=== PATIENT | female | born 1985 | race Caucasian/White ===

== ENCOUNTER 2018-01-08 19:29 | Emergency (ER) | payer OTHER ==
[~2018-01-08] VITALS: Ht 152.4 cm; Wt 113.4 kg
[~2018-01-08 19:29] MED LIST: BREO; FLONASE; GABAPENTIN300 MG PO; TOPAMAX25 MG PO; WELLBUTRIN SR150 MG PO; Z.0.ADDERALL 20 MG20; Z.0.ARMOUR THYROID30; Z.0.ATIVAN1 MG
[2018-01-08] MEDS ORDERED: TETANUS/DIPHTHERIA TOX ADULT 0.5 ML SYR IM ONE (20:15)
[2018-01-08 20:34] VITALS: BP 129/86
== END 2018-01-08 20:38 | disposition home or self-care (01) ==
LOC: ER 19:29
DX: S01.112A Laceration without foreign body of left eyelid and periocular area, initial encounter (principal); W22.8XXA Striking against or struck by other objects, initial encounter
CPT/HCPCS: 90471; 90714; 99282

== ENCOUNTER 2018-08-25 11:53 | Emergency (ER) | payer BC, OTHER ==
[~2018-08-25] VITALS: Ht 157.5 cm; Wt 113.4 kg
[~2018-08-25 11:53] MED LIST changes: +MOTRIN200 MG PO
--- OUTSIDE RECORDS SUMMARY | 2018-08-25 11:55 | XMS REPORT | Clinical Summary ---
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 Last Filed Vital Signs Not on file Plan of Treatment Health Maintenance Due Date Last Done Comments CERVICAL CANCER SCREENING 2008 INFLUENZA VACCINE 02/11/2018 Results Not on fileafter 08/24/2017 Insurance Payer Benefit Subscriber ID Type Phone Address Plan / Group [employer] MED[employer]ID [employer] xxxxxxxxx [facility] Advance Directives Patient has advance care planning documents on file. For more information, izzy mitchell contact: Carlos Manuel Camacho [address] [place], [place] [address] [place] [address]
--- OUTSIDE RECORDS SUMMARY | 2018-08-25 11:56 | XMS REPORT ---
Author Author [facility] Address Unknown Phone Unavailable Care Team Providers Care Medical Clerical Assistant Name Role Phone Tiffany BARONE Unavailable Unavailable Payers Payer Name Policy Type Policy Number Effective Date Expiration Date Problems This patient has no known problems. Allergies, Adverse Reactions, Alerts Allergy Name Allergy Type Status Severity Reaction(s) Onset Date Inactive Date Treating Clinician Comments Sulfa (Sulfonamide Antibiotics) DA Active [place] 2018-06-25 00:00:00 adhesive tape DA Active MI 2018-06-25 00:00:00 tramadol DA Active U 2018-06-25 00:00:00 adhesive tape DA Active MI 2018-06-07 00:00:00 Sulfa (Sulfonamide Antibiotics) DA Active MN 2018-05-27 00:00:00 tramadol DA Active U 2018-05-27 00:00:00 Sulfa (Sulfonamide Antibiotics) DA Active MN 2017-12-08 00:00:00 tramadol DA Active U 2017-12-08 00:00:00 Medications This patient has no known medications. Results Test Description Test Time Test Comments Text Results Atomic Results Result Comments BASIC METABOLIC PANEL 2018-08-24 11:53:00 SODIUM (test code=NA) 136 mmol/L 136-145 POTASSIUM (test code=K) 4.8 mmol/L 3.5-5.1 CHLORIDE (test code=CL) 107.0 mmol/L 98-107 CARBON DIOXIDE (test code=CO2) 20.0 mmol/L 21-32 ANION GAP (test code=GAP) 13.8 10-20 GLUCOSE (test code=GLU) 87 mg/dL 74-106 BLOOD UREA NITROGEN (test code=BUN) 4 mg/dL 7-18 GLOMERULAR FILTRATION RATE (test code=GFR) > 60 mL/min >=60 Estimated GFR by using Modified MDRD formula.Chronic kidney disease is defined as either kidney damageor GFR <60 mL/min/1.73 m2 for >3 months. CREATININE (test code=CREAT) 0.80 mg/dL 0.55-1.02 Note change in reference range due to change in reagent. BUN/CREATININE RATIO (test code=BUN/CREA) 4.8 10-20 CALCIUM (test code=CA) 8.8 mg/dL 8.5-10.1 BASIC METABOLIC [id number] 11:48:00* Test Item Value Reference Range Comments SODIUM (test code=NA) 136 mmol/L 136-145 POTASSIUM (test code=K) 4.8 mmol/L 3.5-5.1 CHLORIDE (test code=CL) 107.0 mmol/L 98-107 CARBON DIOXIDE (test code=CO2) mmol/L 21-32 ANION GAP (test code=GAP) 10-20 GLUCOSE (test code=GLU) mg/dL 74-106 BLOOD UREA NITROGEN (test code=BUN) mg/dL 7-18 GLOMERULAR FILTRATION RATE (test code=GFR) mL/min >=60 CREATININE (test code=CREAT) mg/dL 0.55-1.02 BUN/CREATININE RATIO (test code=BUN/CREA) 10-20 CALCIUM (test code=CA) mg/dL 8.5-10.1 BASIC METABOLIC [id number] 14:03:00* Test Item Value Reference Range Comments SODIUM (test code=NA) 140 mmol/L 136-145 POTASSIUM (test code=K) 3.0 mmol/L 3.5-5.1 CHLORIDE (test code=CL) 105.0 mmol/L 98-107 CARBON DIOXIDE (test code=CO2) 26.0 mmol/L 21-32 ANION GAP (test code=GAP) 12.0 10-20 GLUCOSE (test code=GLU) 84 mg/dL 74-106 BLOOD UREA NITROGEN (test code=BUN) 3 mg/dL 7-18 GLOMERULAR FILTRATION RATE (test code=GFR) > 60 mL/min >=60 Estimated GFR by using Modified MDRD formula.Chronic kidney disease is defined as either kidney damageor GFR <60 mL/min/1.73 m2 for >3 months. CREATININE (test code=CREAT) 0.90 mg/dL 0.55-1.02 Note change in reference range due to change in reagent. BUN/CREATININE RATIO (test code=BUN/CREA) 3.4 10-20 CALCIUM (test code=CA) 7.8 mg/dL 8.5-10.1 RENAL FUNCTION [id number] 14:03:00* Test Item Value Reference Range Comments ALBUMIN (test code=ALB) 2.3 g/dL 3.4-5.0 PHOSPHORUS (test code=PHOS) 2.9 mg/dL 2.5-4.9 [id number] 14:03:00* Test Item Value Reference Range Comments MAGNESIUM (test code=MAG) 1.7 mg/dL 1.8-2.4 BASIC METABOLIC [id number] 13:56:00* Test Item Value Reference Range Comments SODIUM (test code=NA) 140 mmol/L 136-145 POTASSIUM (test code=K) 3.0 mmol/L 3.5-5.1 CHLORIDE (test code=CL) 105.0 mmol/L 98-107 CARBON DIOXIDE (test code=CO2) mmol/L 21-32 ANION GAP (test code=GAP) 10-20 GLUCOSE (test code=GLU) mg/dL 74-106 BLOOD UREA NITROGEN (test code=BUN) mg/dL 7-18 GLOMERULAR FILTRATION RATE (test code=GFR) mL/min >=60 CREATININE (test code=CREAT) mg/dL 0.55-1.02 BUN/CREATININE RATIO (test code=BUN/CREA) 10-20 CALCIUM (test code=CA) mg/dL 8.5-10.1 RENAL FUNCTION [id number] 13:56:00* Test Item Value Reference Range Comments ALBUMIN (test code=ALB) g/dL 3.4-5.0 PHOSPHORUS (test code=PHOS) mg/dL 2.5-4.9 [id number] 13:56:00* Test Item Value Reference Range Comments MAGNESIUM (test code=MAG) mg/dL 1.8-2.4 [id number] 12:39:00* Test Item Value Reference Range Comments PHOSPHORUS (test code=PHOS) 4.1 mg/dL 2.5-4.9 BASIC METABOLIC [id number] 08:01:00* Test Item Value Reference Range Comments SODIUM (test code=NA) 143 mmol/L 136-145 POTASSIUM (test code=K) 3.8 mmol/L 3.5-5.1 CHLORIDE (test code=CL) 108.0 mmol/L 98-107 CARBON DIOXIDE (test code=CO2) 25.0 mmol/L 21-32 ANION GAP (test code=GAP) 13.8 10-20 GLUCOSE (test code=GLU) 80 mg/dL 74-106 BLOOD UREA NITROGEN (test code=BUN) 3 mg/dL 7-18 GLOMERULAR FILTRATION RATE (test code=GFR) 52 mL/min >=60 Estimated GFR by using Modified MDRD formula.Chronic kidney disease is defined as either kidney damageor GFR <60 mL/min/1.73 m2 for >3 months. CREATININE (test code=CREAT) 1.20 mg/dL 0.55-1.02 Note change in reference range due to change in reagent. BUN/CREATININE RATIO (test code=BUN/CREA) 2.5 10-20 CALCIUM (test code=CA) 8.5 mg/dL 8.5-10.1 [id number] 08:01:00* Test Item Value Reference Range Comments MAGNESIUM (test code=MAG) 2.0 mg/dL 1.8-2.4 CALCIUM [id number] 08:01:00* Test Item Value Reference Range Comments CALCIUM IONIZED (test code=NATANAEL) 1.27 mmol/L 1.12-1.32 BASIC METABOLIC [id number] 07:54:00* Test Item Value Reference Range Comments SODIUM (test code=NA) 143 mmol/L 136-145 POTASSIUM (test code=K) 3.8 mmol/L 3.5-5.1 CHLORIDE (test code=CL) 108.0 mmol/L 98-107 CARBON DIOXIDE (test code=CO2) 25.0 mmol/L 21-32 ANION GAP (test code=GAP) 13.8 10-20 GLUCOSE (test code=GLU) 80 mg/dL 74-106 BLOOD UREA NITROGEN (test code=BUN) 3 mg/dL 7-18 GLOMERULAR FILTRATION RATE (test code=GFR) 52 mL/min >=60 Estimated GFR by using Modified MDRD formula.Chronic kidney disease is defined as either kidney damageor GFR <60 mL/min/1.73 m2 for >3 months. CREATININE (test code=CREAT) 1.20 mg/dL 0.55-1.02 Note change in reference range due to change in reagent. BUN/CREATININE RATIO (test code=BUN/CREA) 2.5 10-20 CALCIUM (test code=CA) 8.5 mg/dL 8.5-10.1 [id number] 07:54:00* Test Item Value Reference Range Comments MAGNESIUM (test code=MAG) 2.0 mg/dL 1.8-2.4 CALCIUM [id number] 07:54:00* Test Item Value Reference Range Comments CALCIUM IONIZED (test code=NATANAEL) mmol/L 1.12-1.32 BASIC METABOLIC [id number] 07:41:00* Test Item Value Reference Range Comments SODIUM (test code=NA) 143 mmol/L 136-145 POTASSIUM (test code=K) 3.8 mmol/L 3.5-5.1 CHLORIDE (test code=CL) 108.0 mmol/L 98-107 CARBON DIOXIDE (test code=CO2) mmol/L 21-32 ANION GAP (test code=GAP) 10-20 GLUCOSE (test code=GLU) mg/dL 74-106 BLOOD UREA NITROGEN (test code=BUN) mg/dL 7-18 GLOMERULAR FILTRATION RATE (test code=GFR) mL/min >=60 CREATININE (test code=CREAT) mg/dL 0.55-1.02 BUN/CREATININE RATIO (test code=BUN/CREA) 10-20 CALCIUM (test code=CA) mg/dL 8.5-10.1 [id number] 07:41:00* Test Item Value Reference Range Comments MAGNESIUM (test code=MAG) mg/dL 1.8-2.4 CALCIUM [id number] 07:41:00* Test Item Value Reference Range Comments CALCIUM IONIZED (test code=NATANAEL) mmol/L 1.12-1.32 UR POTASSIUM [id number] 14:19:00* Test Item Value Reference Range Comments URINE K, RANDOM (test code=KU) 40.0 mmol/L 12-75 UR POTASSIUM 24HR (test code=K24T) 6.0 mmol/24H 25-125 UR VOLUME 24HR (test code=VOL) 150 mL/24hrs 2905-2314 UR CALCIUM [id number] 14:19:00* Test Item Value Reference Range Comments UR CALCIUM (test code=CAU) 15.0 mg/dL 2-17.5 UR CALCIUM 24HR (test code=CA24T) 22.5 mg/24hr 42-353 UR MAGNESIUM [id number] 14:19:00* Test Item Value Reference Range Comments UR MAGNESIUM (test code=MAGU) 20.7 mg/dL 1-13 UR MAGNESIUM 24HR (test code=MAG24T) 31.1 mg/24hr 24-255 UR POTASSIUM [id number] 14:07:00* Test Item Value Reference Range Comments URINE K, RANDOM (test code=KU) mmol/L 12-75 UR POTASSIUM 24HR (test code=K24T) mmol/24H 25-125 UR VOLUME 24HR (test code=VOL) 150 mL/24hrs 7250-5984 UR CALCIUM [id number] 14:07:00* Test Item Value Reference Range Comments UR CALCIUM (test code=CAU) mg/dL 2-17.5 UR CALCIUM 24HR (test code=CA24T) mg/24hr 42-353 UR MAGNESIUM [id number] 14:07:00* Test Item Value Reference Range Comments UR MAGNESIUM (test code=MAGU) mg/dL 1-13 UR MAGNESIUM 24HR (test code=MAG24T) mg/24hr 24-255 BASIC METABOLIC [id number] 06:07:00* Test Item Value Reference Range Comments SODIUM (test code=NA) 138 mmol/L 136-145 POTASSIUM (test code=K) 4.0 mmol/L 3.5-5.1 CHLORIDE (test code=CL) 107.0 mmol/L 98-107 CARBON DIOXIDE (test code=CO2) 23.0 mmol/L 21-32 ANION GAP (test code=GAP) 12.0 10-20 GLUCOSE (test code=GLU) 80 mg/dL 74-106 BLOOD UREA NITROGEN (test code=BUN) 3 mg/dL 7-18 GLOMERULAR FILTRATION RATE (test code=GFR) > 60 mL/min >=60 Estimated GFR by using Modified MDRD formula.Chronic kidney disease is defined as either kidney damageor GFR <60 mL/min/1.73 m2 for >3 months. CREATININE (test code=CREAT) 1.00 mg/dL 0.55-1.02 Note change in reference range due to change in reagent. BUN/CREATININE RATIO (test code=BUN/CREA) 3.0 10-20 CALCIUM (test code=CA) 7.9 mg/dL 8.5-10.1 [id number] 06:07:00* Test Item Value Reference Range Comments PHOSPHORUS (test code=PHOS) 1.7 mg/dL 2.5-4.9 [id number] 06:07:00* Test Item Value Reference Range Comments MAGNESIUM (test code=MAG) 2.1 mg/dL 1.8-2.4 BASIC METABOLIC [id number] 06:06:00* Test Item Value Reference Range Comments SODIUM (test code=NA) 138 mmol/L 136-145 POTASSIUM (test code=K) 4.0 mmol/L 3.5-5.1 CHLORIDE (test code=CL) 107.0 mmol/L 98-107 CARBON DIOXIDE (test code=CO2) mmol/L 21-32 ANION GAP (test code=GAP) 10-20 GLUCOSE (test code=GLU) mg/dL 74-106 BLOOD UREA NITROGEN (test code=BUN) mg/dL 7-18 GLOMERULAR FILTRATION RATE (test code=GFR) mL/min >=60 CREATININE (test code=CREAT) mg/dL 0.55-1.02 BUN/CREATININE RATIO (test code=BUN/CREA) 10-20 CALCIUM (test code=CA) 7.9 mg/dL 8.5-10.1 [id number] 06:06:00* Test Item Value Reference Range Comments PHOSPHORUS (test code=PHOS) mg/dL 2.5-4.9 [id number] 06:06:00* Test Item Value Reference Range Comments MAGNESIUM (test code=MAG) mg/dL 1.8-2.4 URINE K, [id number] 10:34:00* Test Item Value Reference Range Comments URINE K, RANDOM (test code=KU) 35.0 mmol/L 12-75 UR [id number] 10:34:00* Test Item Value Reference Range Comments UR MAGNESIUM (test code=MAGU) 31.2 mg/dL 1-13 UR OSMOLALITY [id number] 10:34:00* Test Item Value Reference Range Comments UR OSMOLALITY RANDOM (test code=OSMOU) 504 mOsm/kg 48-962 URINE K, [id number] 10:31:00* Test Item Value Reference Range Comments URINE K, RANDOM (test code=KU) 35.0 mmol/L 12-75 UR [id number] 10:31:00* Test Item Value Reference Range Comments UR MAGNESIUM (test code=MAGU) mg/dL 1-13 UR OSMOLALITY [id number] 10:31:00* Test Item Value Reference Range Comments UR OSMOLALITY RANDOM (test code=OSMOU) 504 mOsm/kg 48-962 OSMOLALITY [id number] 10:28:00* Test Item Value Reference Range Comments OSMOLALITY SERUM (test code=OSMO) 283 mOsm/kg 275-295 UR OSMOLALITY [id number] 09:51:00* Test Item Value Reference Range Comments UR OSMOLALITY RANDOM (test code=OSMOU) 504 mOsm/kg 48-962 BASIC METABOLIC [id number] 05:04:00* Test Item Value Reference Range Comments SODIUM (test code=NA) 140 mmol/L 136-145 POTASSIUM (test code=K) 3.0 mmol/L 3.5-5.1 CHLORIDE (test code=CL) 103.0 mmol/L 98-107 CARBON DIOXIDE (test code=CO2) 29.0 mmol/L 21-32 ANION GAP (test code=GAP) 11.0 10-20 GLUCOSE (test code=GLU) 73 mg/dL 74-106 BLOOD UREA NITROGEN (test code=BUN) 3 mg/dL 7-18 GLOMERULAR FILTRATION RATE (test code=GFR) > 60 mL/min >=60 Estimated GFR by using Modified MDRD formula.Chronic kidney disease is defined as either kidney damageor GFR <60 mL/min/1.73 m2 for >3 months. CREATININE (test code=CREAT) 0.80 mg/dL 0.55-1.02 Note change in reference range due to change in reagent. BUN/CREATININE RATIO (test code=BUN/CREA) 3.7 10-20 CALCIUM (test code=CA) 7.9 mg/dL 8.5-10.1 [id number] 05:04:00* Test Item Value Reference Range Comments MAGNESIUM (test code=MAG) 2.6 mg/dL 1.8-2.4 BASIC METABOLIC [id number] 04:54:00* Test Item Value Reference Range Comments SODIUM (test code=NA) 140 mmol/L 136-145 POTASSIUM (test code=K) 3.0 mmol/L 3.5-5.1 CHLORIDE (test code=CL) 103.0 mmol/L 98-107 CARBON DIOXIDE (test code=CO2) mmol/L 21-32 ANION GAP (test code=GAP) 10-20 GLUCOSE (test code=GLU) mg/dL 74-106 BLOOD UREA NITROGEN (test code=BUN) mg/dL 7-18 GLOMERULAR FILTRATION RATE (test code=GFR) mL/min >=60 CREATININE (test code=CREAT) mg/dL 0.55-1.02 BUN/CREATININE RATIO (test code=BUN/CREA) 10-20 CALCIUM (test code=CA) mg/dL 8.5-10.1 [id number] 04:54:00* Test Item Value Reference Range Comments MAGNESIUM (test code=MAG) mg/dL 1.8-2.4 [id number] 11:36:00* Test Item Value Reference Range Comments POTASSIUM (test code=K) 3.1 mmol/L 3.5-5.1 [id number] 11:36:00* Test Item Value Reference Range Comments MAGNESIUM (test code=MAG) 1.7 mg/dL 1.8-2.4 - NM GASTRIC [id number] 09:39:00 FAX: Lamin Min MD [place]: [address]: [facility] FAX: Daniel Swartz [phone] FAX: Anabell Brumfield [phone] Name: IVANNA WHITE [facility] : 1985 Age/S: 33/F [address] Unit #: [id number] Loc: V.3074 [place], [place] [address] Phys: Anabell Brumfield Acct: [id number] Dis Date: Status: ADM IN ONE #: [phone] Exam Date: 08/03/2018914 FAX #: [phone] Reason: abd pain, gastric stenosis EXAMS: CPT CODE: [id number] NM GASTRIC EMPTYING 19964 HISTORY: Abdom inal pain and gastric stenosis. COMPARISON: Upper GI series from J anuary 2018. Gastric emptying study: 1 mCi of technetium 99m u ltrafiltered sulfur colloid in oatmeal. T1 /2 calculated at 30 minutes which is well within the normal range of less than 90 minutes. IMPRESSION: T1 /2 of 30 minutes is normal and these findings would not suggest gastric outlet obstruction or stenosis. at 0939 Reported and signed by: Caleb Mcneal M.D. CC: Lamin Bobby MD; Daniel Holliday; Anabell Brumfield Technologist: KARLEE GUTIERREZ Trnscrd Date/Time/By: 0 08/03/2018 (0939) : By: [email or web address] Orig Print D/T: S: 08/03/2018 (0980) PAGE 1 Signed Report [id number] 14:39:00* Test Item Value Reference Range Comments POTASSIUM (test code=K) 3.3 mmol/L 3.5-5.1 [id number] 14:39:00* Test Item Value Reference Range Comments MAGNESIUM (test code=MAG) 1.9 mg/dL 1.8-2.4 BASIC METABOLIC [id number] 05:44:00* Test Item Value Reference Range Comments SODIUM (test code=NA) 138 mmol/L 136-145 POTASSIUM (test code=K) 2.7 mmol/L 3.5-5.1 Results called to [id number] by V.[email or web address] 08/02/18 0543Critical results verified and read back by Nurse? Y CHLORIDE (test code=CL) 95.0 mmol/L 98-107 CARBON DIOXIDE (test code=CO2) 33.0 mmol/L 21-32 ANION GAP (test code=GAP) 12.7 10-20 GLUCOSE (test code=GLU) 81 mg/dL 74-106 BLOOD UREA NITROGEN (test code=BUN) 4 mg/dL 7-18 GLOMERULAR FILTRATION RATE (test code=GFR) > 60 mL/min >=60 Estimated GFR by using Modified MDRD formula.Chronic kidney disease is defined as either kidney damageor GFR <60 mL/min/1.73 m2 for >3 months. CREATININE (test code=CREAT) 0.90 mg/dL 0.55-1.02 Note change in reference range due to change in reagent. BUN/CREATININE RATIO (test code=BUN/CREA) 4.3 10-20 CALCIUM (test code=CA) 7.7 mg/dL 8.5-10.1 [id number] 16:32:00* Test Item Value Reference Range Comments POTASSIUM (test code=K) 3.2 mmol/L 3.5-5.1 - XR UGI W/AIR W/O [id number] 14:56:00 FAX: Lamin Min MD [place]: [address] St: ADM FAX: Daniel Swartz [phone] FAX: Anabell Brumfield [phone] Name: CHRISTOPHERIVANNAJUDY CONN [facility] : 1985 Age/S: 33/F [address] [facility] Unit #: [id number] Loc: V.3074 [place] [address] Phys: Anabell Brumfield Acct: [id number] Dis Date: Status: ADM IN ONE #: [phone] Exam Date: 08/01/2018 1435 FAX #: [phone] Reason: abd pain, gastric stenosis EXAMS: CPT CODE: [id number] XR UGI W/AIR W/O KUB [id number] EXAM: Upper GI double contrast barium study; INFORMATION: Nausea and vomiting; p atient is status post pyloric dilatation several months ago; FINDINGS: Unimpaired passage of contrast material through the esophagus, the stomach and duodenum and the proximal jejunum. These organs shows smooth contours and normal mucosal pattern. IMPRESSION: Unremarkable barium study of the upper GI tract; no morphological or functional abnormalities. Fluoroscopy Time: 60 sec CAK : 34.167 mGy at 1456 Reported and signed by: Dawood Rivera M.D. CC: Lamin Bobby MD; Daniel Holliday; Anabell Brumfield Technologist: Piter BILL(R) Trnscrd Date/Time/By: 08/01/2018 (2269) : By: ChitoGRW Orig Print D/T: S: 08/01/2018 (2245) PAGE 1 Signed Report COMPREHENSIVE METABOLIC [id number] 07:22:00* Test Item Value Reference Range Comments SODIUM (test code=NA) 135 mmol/L 136-145 POTASSIUM (test code=K) 2.5 mmol/L 3.5-5.1 Results called to [id number] by IVETT 08/01/18 0722Critical results verified and read back by Nurse? Y CHLORIDE (test code=CL) 93.0 mmol/L 98-107 CARBON DIOXIDE (test code=CO2) 31.0 mmol/L 21-32 ANION GAP (test code=GAP) 13.5 10-20 GLUCOSE (test code=GLU) 89 mg/dL 74-106 BLOOD UREA NITROGEN (test code=BUN) 4 mg/dL 7-18 GLOMERULAR FILTRATION RATE (test code=GFR) > 60 mL/min >=60 Estimated GFR by using Modified MDRD formula.Chronic kidney disease is defined as either kidney damageor GFR <60 mL/min/1.73 m2 for >3 months. CREATININE (test code=CREAT) 1.00 mg/dL 0.55-1.02 Note change in reference range due to change in reagent. BUN/CREATININE RATIO (test code=BUN/CREA) 4.0 10-20 TOTAL PROTEIN (test code=PROT) 5.6 gram/dL 6.4-8.2 ALBUMIN (test code=ALB) 2.1 g/dL 3.4-5.0 GLOBULIN (test code=GLOB) 3.5 gram/dL 2.7-4.2 ALBUMIN/GLOBULIN RATIO (test code=A/G) 0.6 0.75-1.50 CALCIUM (test code=CA) 7.6 mg/dL 8.5-10.1 BILIRUBIN TOTAL (test code=BILT) 0.50 mg/dL 0.0-1.0 SGOT/AST (test code=AST) 21 IUnit/L 15-37 SGPT/ALT (test code=ALT) 13 IUnit/L 12-78 ALKALINE PHOSPHATASE TOTAL (test code=ALKP) 83 IUnit/L 45-117 Note change in reference range due to change in reagent. CBC W/AUTO [id number] 06:42:00* Test Item Value Reference Range Comments WHITE BLOOD CELL (test code=WBC) 6.6 K/mm3 4.5-12.5 RED BLOOD CELL (test code=RBC) 3.65 mill/mm3 3.7-5.2 HEMOGLOBIN (test code=HGB) 10.5 gram/dL 11.5-15.5 RESULT VERIFIED BY REPEAT ANALYSIS HEMATOCRIT (test code=HCT) 31.8 % 36.0-46.0 MEAN CELL VOLUME (test code=MCV) 87.1 fL 80-98 MEAN CELL HGB (test code=MCH) 28.8 picogram 27.0-33.0 MEAN CELL HGB CONCETRATION (test code=MCHC) 33.0 gram/dL 33.0-36.0 RED CELL DISTRIBUTION WIDTH (test code=RDW) 13.7 % 11.6-16.2 RED CELL DISTRIBUTION WIDTH SD (test code=RDW-SD) 43.9 fL 37.0-51.0 PLATELET COUNT (test code=PLT) 339 K/mm3 150-450 RESULT VERIFIED BY REPEAT ANALYSIS MEAN PLATELET VOLUME (test code=MPV) 9.9 fL 6.7-11.0 NEUTROPHIL % (test code=NT%) 41.0 % 39.0-69.0 IMMATURE GRANULOCYTE % (test code=IG%) 0.3 % 0.0-5.0 LYMPHOCYTE % (test code=LY%) 49.8 % 25.0-55.0 MONOCYTE % (test code=MO%) 8.1 % 0.0-10.0 EOSINOPHIL % (test code=EO%) 0.3 % 0.0-5.0 BASOPHIL % (test code=BA%) 0.5 % 0.0-1.0 NUCLEATED RBC % (test code=NRBC%) 0.0 % 0-0 NEUTROPHIL # (test code=NT#) 2.70 K/mm3 1.8-7.7 IMMATURE GRANULOCYTE # (test code=IG#) 0.02 x10 3/uL 0-0.03 LYMPHOCYTE # (test code=LY#) 3.28 K/mm3 1.0-5.0 MONOCYTE # (test code=MO#) 0.53 K/mm3 0-0.8 EOSINOPHIL # (test code=EO#) 0.02 K/mm3 0.0-0.5 BASOPHIL # (test code=BA#) 0.03 K/mm3 0.0-0.2 NUCLEATED RBC # (test code=NRBC#) 0.00 K/mm3 0.0-0.1 [id number] 20:36:00* Test Item Value Reference Range Comments MAGNESIUM (test code=MAG) 2.0 mg/dL 1.8-2.4 BASIC METABOLIC [id number] 20:34:00* Test Item Value Reference Range Comments SODIUM (test code=NA) 133 mmol/L 136-145 POTASSIUM (test code=K) 2.3 mmol/L 3.5-5.1 Results called to STAR/PBW1437 by [email or web address] 07/31/184Critical results verified and read back by Nurse? Y CHLORIDE (test code=CL) 88.0 mmol/L 98-107 CARBON DIOXIDE (test code=CO2) 32.0 mmol/L 21-32 ANION GAP (test code=GAP) 15.3 10-20 GLUCOSE (test code=GLU) 99 mg/dL 74-106 BLOOD UREA NITROGEN (test code=BUN) 3 mg/dL 7-18 GLOMERULAR FILTRATION RATE (test code=GFR) 58 mL/min >=60 Estimated GFR by using Modified MDRD formula.Chronic kidney disease is defined as either kidney damageor GFR <60 mL/min/1.73 m2 for >3 months. CREATININE (test code=CREAT) 1.10 mg/dL 0.55-1.02 Note change in reference range due to change in reagent. BUN/CREATININE RATIO (test code=BUN/CREA) 2.7 10-20 CALCIUM (test code=CA) 8.6 mg/dL 8.5-10.1 HEPATIC FUNCTION [id number] 20:34:00* Test Item Value Reference Range Comments TOTAL PROTEIN (test code=PROT) 6.8 gram/dL 6.4-8.2 ALBUMIN (test code=ALB) 2.6 g/dL 3.4-5.0 GLOBULIN (test code=GLOB) 4.2 gram/dL 2.7-4.2 ALBUMIN/GLOBULIN RATIO (test code=A/G) 0.6 0.75-1.50 BILIRUBIN TOTAL (test code=BILT) 0.60 mg/dL 0.0-1.0 BILIRUBIN DIRECT (test code=BILD) 0.22 mg/dL 0.0-0.20 SGOT/AST (test code=AST) 28 IUnit/L 15-37 SGPT/ALT (test code=ALT) 16 IUnit/L 12-78 ALKALINE PHOSPHATASE TOTAL (test code=ALKP) 105 IUnit/L 45-117 Note change in reference range due to change in reagent. [id number] 20:34:00* Test Item Value Reference Range Comments LIPASE (test code=LIP) 136 U/L 73.0-393.0 HCG SERUM [id number] 20:34:00* Test Item Value Reference Range Comments HCG SERUM QUAL (test code=HCGQL) NEGATIVE NEGATIVE This HCGQL test is NOT applicable for MALE patients.Check with nurse about probable order error.If Tumor Marker Test needed, nurse should order test "HCGTU"(Test #550.58366) BASIC METABOLIC [id number] 20:26:00* Test Item Value Reference Range Comments SODIUM (test code=NA) mmol/L 136-145 POTASSIUM (test code=K) mmol/L 3.5-5.1 CHLORIDE (test code=CL) mmol/L 98-107 CARBON DIOXIDE (test code=CO2) mmol/L 21-32 ANION GAP (test code=GAP) 10-20 GLUCOSE (test code=GLU) mg/dL 74-106 BLOOD UREA NITROGEN (test code=BUN) mg/dL 7-18 GLOMERULAR FILTRATION RATE (test code=GFR) mL/min >=60 CREATININE (test code=CREAT) mg/dL 0.55-1.02 BUN/CREATININE RATIO (test code=BUN/CREA) 10-20 CALCIUM (test code=CA) mg/dL 8.5-10.1 HEPATIC FUNCTION [id number] 20:26:00* Test Item Value Reference Range Comments TOTAL PROTEIN (test code=PROT) gram/dL 6.4-8.2 ALBUMIN (test code=ALB) g/dL 3.4-5.0 GLOBULIN (test code=GLOB) gram/dL 2.7-4.2 ALBUMIN/GLOBULIN RATIO (test code=A/G) 0.75-1.50 BILIRUBIN TOTAL (test code=BILT) mg/dL 0.0-1.0 BILIRUBIN DIRECT (test code=BILD) mg/dL 0.0-0.20 SGOT/AST (test code=AST) IUnit/L 15-37 SGPT/ALT (test code=ALT) IUnit/L 12-78 ALKALINE PHOSPHATASE TOTAL (test code=ALKP) IUnit/L 45-117 [id number] 20:26:00* Test Item Value Reference Range Comments LIPASE (test code=LIP) U/L 73.0-393.0 HCG SERUM [id number] 20:26:00* Test Item Value Reference Range Comments HCG SERUM QUAL (test code=HCGQL) NEGATIVE NEGATIVE This HCGQL test is NOT applicable for MALE patients.Check with nurse about probable order error.If Tumor Marker Test needed, nurse should order test "HCGTU"(Test #550.06711) CBC W/O [id number] 20:12:00* Test Item Value Reference Range Comments WHITE BLOOD CELL (test code=WBC) 9.9 K/mm3 4.5-12.5 RED BLOOD CELL (test code=RBC) 4.31 mill/mm3 3.7-5.2 HEMOGLOBIN (test code=HGB) 12.6 gram/dL 11.5-15.5 HEMATOCRIT (test code=HCT) 37.0 % 36.0-46.0 MEAN CELL VOLUME (test code=MCV) 85.8 fL 80-98 MEAN CELL HGB (test code=MCH) 29.2 picogram 27.0-33.0 MEAN CELL HGB CONCETRATION (test code=MCHC) 34.1 gram/dL 33.0-36.0 RED CELL DISTRIBUTION WIDTH (test code=RDW) 13.5 % 11.6-16.2 PLATELET COUNT (test code=PLT) 442 K/mm3 150-450 MEAN PLATELET VOLUME (test code=MPV) 9.5 fL 6.7-11.0 URINALYSIS [id number] 20:12:00* Test Item Value Reference Range Comments UA COLOR (test code=COLU) DARK YELLOW YELLOW UA APPEARANCE (test code=APPU) SLIGHT CLOUDY CLEAR UA GLUCOSE DIPSTICK (test code=DGLUU) NEGATIVE mg/dL NEGATIVE UA BILIRUBIN DIPSTICK (test code=BILU) 2+ (MOD) NEGATIVE UA KETONE DIPSTICK (test code=KETU) TRACE mg/dL NEGATIVE UA SPECIFIC GRAVITY (test code=SGU) 1.025 1.001-1.035 UA BLOOD DIPSTICK (test code=NOLAN) 3+ (Large) NEGATIVE UA PH DIPSTICK (test code=BUSHRA) 5.5 5.0-8.0 UA PROTEIN DIPSTICK (test code=PROU) NEGATIVE mg/dL Neg-15 UA UROBILINIOGEN DIPSTICK (test code=URO) 0.2 mg/dL 0.0-0.2 UA NITRITE DIPSTICK (test code=MAURISIO) NEGATIVE NEGATIVE UA LEUKOCYTE ESTERASE W REFLEX (test code=LEUUR) 1+ NEGATIVE UA WBC (test code=WBCU) 6-10 per HPF 0-5 IN SOME URINARY TRACT INFECTIONS THERE MAY NOT BE ENOUGHWBCs IN THE URINE TO TRIGGER AN AUTOMATIC (REFLEX) URINECULTURE. A SEPERATE ORDER FOR URINE CULTURE IS RECOMMENDEDIF THERE IS STRONG SUPPORT FOR A URINARY TRACT INFECTIONCLINICALLY. UA RBC (test code=RBCU) 0-3 per HPF 0-5 UA EPITHELIAL CELLS (test code=EPIU) Moderate (5-10/hpf) per HPF Few UA BACTERIA (test code=BACU) MODERATE per HPF NONE Urine Source? Clean CatchURINALYSIS [id number] 20:10:00* Test Item Value Reference Range Comments UA COLOR (test code=COLU) DARK YELLOW YELLOW UA APPEARANCE (test code=APPU) SLIGHT CLOUDY CLEAR UA GLUCOSE DIPSTICK (test code=DGLUU) NEGATIVE mg/dL NEGATIVE UA BILIRUBIN DIPSTICK (test code=BILU) 2+ (MOD) NEGATIVE UA KETONE DIPSTICK (test code=KETU) TRACE mg/dL NEGATIVE UA SPECIFIC GRAVITY (test code=SGU) 1.025 1.001-1.035 UA BLOOD DIPSTICK (test code=NOLAN) 3+ (Large) NEGATIVE UA PH DIPSTICK (test code=BUSHRA) 5.5 5.0-8.0 UA PROTEIN DIPSTICK (test code=PROU) NEGATIVE mg/dL Neg-15 UA UROBILINIOGEN DIPSTICK (test code=URO) 0.2 mg/dL 0.0-0.2 UA NITRITE DIPSTICK (test code=MAURISIO) NEGATIVE NEGATIVE UA LEUKOCYTE ESTERASE W REFLEX (test code=LEUUR) 1+ NEGATIVE UA WBC (test code=WBCU) per HPF 0-5 Urine Source? Clean CatchFOOT RIGHT [id number] 13:22:00 [place] [address] Patient Name: IVANNA WHITE MR #: [id number] : 1985 Age/Sex: 32/F Req #: [id number] Adm Physician: Ordered by: JAM SANDOVAL SCREENING UNIT REGISTERED NURSE Report #: [id number] Location: ER Room/Bed: Procedure: [id number] DX/FOOT RIGHT COMPLETE Exam D ate: Exam Time: REPORT STATUS: Signed FOOT RIGHT COMPLETE - 3 views HISTORY: Pain. Excruciating pain. Point of tende rness at the calcaneus. COMPARISON: None available. FINDINGS: Bone s: No acute displaced fracture. Osseous alignment is within normal limits. Mild plantar calcaneal enthesophyte. Joints: The joint spaces are well- maintained. Soft tissues: The soft tissues appear unremarkable. IMPRESSION: 1. Mild plantar calcaneal enthesophyte. 2. No fractures. Signed by: Dr. Matt Ramos M.D. on 03/17/2018 1:23 PM Dictated By: MATT RAMOS MD [id number] Transcribed By: LARA on 03/17/18 1323 COPY TO: JAM SANDOVAL NP
--- NOTE | 2018-08-25 12:57 | Diagnostic Imaging Report ---
Exam: Left ankle 3 views History: Pain x4 days Comparison: None. Findings: No acute, displaced fracture or dislocation. The tibial plafond and talar dome are intact. The ankle mortise is maintained. Soft tissues are unremarkable. Impression: No acute osseous abnormality. Signed by: Dr. Tod Montenegro M.D. on 08/25/2018 12:54 PM
--- NOTE | 2018-08-25 12:58 | Diagnostic Imaging Report ---
EXAMINATION: CHEST SINGLE (PORTABLE) INDICATION: Chest pain. COMPARISON: None FINDINGS: TUBES and LINES: None. LUNGS: Lungs are well inflated. Lungs are clear. There is no evidence of pneumonia or pulmonary edema. PLEURA: No pleural effusion or pneumothorax. HEART AND MEDIASTINUM: The cardiomediastinal silhouette is unremarkable. BONES AND SOFT TISSUES: No acute osseous lesion. Soft tissues are unremarkable. UPPER ABDOMEN: No free air under the diaphragm. IMPRESSION: No acute thoracic abnormality. Signed by: Dr. Stephanie Green M.D. on 08/25/2018 12:55 PM
== END 2018-08-25 13:57 | disposition home or self-care (01) ==
LOC: FSED 11:53
DX: R06.00 Dyspnea, unspecified (principal); R05 Cough; M94.0 Chondrocostal junction syndrome [Tietze]; M25.572 Pain in left ankle and joints of left foot; S93.492A Sprain of other ligament of left ankle, initial encounter; F17.210 Nicotine dependence, cigarettes, uncomplicated
CPT/HCPCS: 71045; 93005; 99284

== ENCOUNTER 2018-09-20 20:29 | Emergency (ER) | payer SELFPAY ==
[~2018-09-20] VITALS: Ht 157.5 cm; Wt 113.4 kg
--- OUTSIDE RECORDS SUMMARY | 2018-09-20 20:31 | XMS REPORT | Clinical Summary ---
Author Author Carlos Manuel [facility] Organization [facility] Address Unknown Phone Unavailable Care Team Providers Care Hadoop Java Developer Name Role Phone Daniel Holliday DO PCP [...] INFLUENZA VACCINE 02/11/2018 Results Not on fileafter 09/19/2017 Insurance Payer Benefit Subscriber ID Type Phone Address Plan / Group UHC MEDICAID [employer] xxxxxxxxx [facility] Advance Directives Patient has advance care planning documents on file. For more information, izzy mitchell contact: Carlos Manuel Camacho [address] [place], [place] [address] [place] [address]
[2018-09-20] MEDS ORDERED: SODIUM CHLORIDE 0.9% 1000ML 1,000 ML IV ONE (20:45)
--- NOTE | 2018-09-20 21:47 | Diagnostic Imaging Report ---
EXAMINATION: CHEST 2 VIEWS INDICATION: Cough COMPARISON: Chest x-ray 08/25/2018 FINDINGS: PA and lateral views TUBES and LINES: Left chest wall port catheter tip overlies the upper SVC LUNGS: Lungs are well inflated. Lungs are clear. There is no evidence of pneumonia or pulmonary edema. PLEURA: No pleural effusion or pneumothorax. HEART AND MEDIASTINUM: The cardiomediastinal silhouette is unremarkable. BONES AND SOFT TISSUES: No acute osseous lesion. Soft tissues are unremarkable. UPPER ABDOMEN: No free air under the diaphragm. IMPRESSION: No acute thoracic abnormality. Signed by: DR. David Balderrama MD on 09/20/2018 9:44 PM
[2018-09-20 22:09] LABS: BASOPHILS % 0.5 % (0.0-1.0); EOSINOPHILS % 0.5 % (0.0-6.0); HEMATOCRIT 43.1 % (34.2-44.1); HEMOGLOBIN 14.3 g/dL (12.0-16.0); LYMPHOCYTES # (AUTO) 1.8 (1.0-3.2); LYMPHOCYTES % 42.6 % (18.0-39.1); MEAN CORPUSCULAR HEMOGLOBIN 29.5 pg (28-32); MEAN CORPUSCULAR HGB CONC 33.2 g/dL (31-35); MEAN CORPUSCULAR VOLUME 88.9 fL (81-99); MONOCYTES # (AUTO) 0.4 (0.2-0.8); NEUTROPHILS # (AUTO) 1.9 (2.1-6.9); NEUTROPHILS % 45.9 % (38.7-80.0); PLATELET COUNT 232 x10e3/uL (140-360); RED BLOOD COUNT 4.85 x10e6/uL (3.6-5.1); RED CELL DISTRIBUTION WIDTH 14.1 % (11.7-14.4)
[2018-09-20 22:24] LABS: ALANINE AMINOTRANSFERASE 60 IU/L (0-55); ALBUMIN 2.3 g/dL (3.5-5.0); ALBUMIN/GLOBULIN RATIO 0.6 (0.8-2.0); ALKALINE PHOSPHATASE 171 IU/L (40-150); AMYLASE 94 U/L (25-125); ANION GAP 14.2 mmol/L (8-16); BLOOD UREA NITROGEN 8 mg/dL (7-26); BUN/CREATININE RATIO 10 (6-25); CALCIUM 8.9 mg/dL (8.4-10.2); CARBON DIOXIDE 28 mmol/L (22-29); CHLORIDE 97 mmol/L (98-107); CREATININE, SERUM 0.83 mg/dL (0.57-1.11); EST GLOMERULAR FILTRATION RATE > 60 ML/MIN (60-); GLUCOSE 106 mg/dL (74-118); LIPASE 22 U/L (8-78); POTASSIUM 3.2 mmol/L (3.5-5.1); SODIUM 136 mmol/L (136-145)
[2018-09-20 23:23] LABS: AMPHETAMINES SCREEN,URINE POSITIVE (NEGATIVE); BENZODIAZEPINES SCREEN,URINE POSITIVE (NEGATIVE); PHENCYCLIDINE SCREEN,URINE NEGATIVE (NEGATIVE)
[2018-09-20 23:24] LABS: BACTERIA,URINE MANY /HPF; CALCIUM OXALATE CRYSTALS,UR MANY (FEW); CLARITY,URINE HAZY (CLEAR); COLOR,URINE YELLOW (YELLOW); EPITHELIAL CELLS,URINE FEW /LPF; RBC,URINE 21-50 /HPF (0-5)
[2018-09-20 23:25] LABS: BILIRUBIN,URINE 1+ (NEGATIVE); KETONES,URINE TRACE (NEGATIVE); LEUKOCYTE ESTERASE ,URINE NEGATIVE (NEGATIVE); NITRITE,URINE NEGATIVE (NEGATIVE); PROTEIN,URINE DIPSTICK 1+ (NEGATIVE); URINE UROBILINOGEN 0.2 mg/dL (0.2 - 1)
[2018-09-20 23:26] LABS: PREGNANCY TEST, URINE NEGATIVE (NEGATIVE)
[2018-09-20] MEDS ORDERED: POTASSIUM CHLORIDE 20 MEQ TAB CR PO STA (23:48)
[2018-09-21] MEDS ORDERED: HEPARIN SOD (PORCINE) 1000 UNIT/ML SDV ONE (00:10)
--- NOTE | 2018-09-21 00:15 | NUR ---
PORT CATH FLUSHED WITH 250 UNITS HEPARIN IN 5CCS NS.
== END 2018-09-21 00:20 | disposition home or self-care (01) ==
LOC: ER 20:29
DX: R05 Cough (principal); R11.10 Vomiting, unspecified; J20.9 Acute bronchitis, unspecified; K52.9 Noninfective gastroenteritis and colitis, unspecified; E87.6 Hypokalemia
CPT/HCPCS: 36415; 71046; 80053; 80307; 81001; 81025; 82150; 83690; 85025; 87400; 99284; J1644; J7030

== ENCOUNTER 2018-10-12 09:33 | Emergency (ER) | payer SELFPAY ==
[~2018-10-12] VITALS: Ht 157.5 cm; Wt 113.4 kg
--- OUTSIDE RECORDS SUMMARY | 2018-10-12 09:35 | XMS REPORT | Clinical Summary ---
Author Author Carlos Manuel [facility] Organization [facility] Address Unknown Phone Unavailable Care Team Providers Care Hollow Tile Partition Erector Name Role Phone Daniel Holliday DO PCP [...] INFLUENZA VACCINE 02/11/2018 Results Not on fileafter 10/11/2017 Insurance Payer Benefit Subscriber ID Type Phone Address Plan / Group [employer] MEDICAID [employer] xxxxxxxxx [facility] Advance Directives Patient has advance care planning documents on file. For more information, izzy mitchell contact: Carlos Manuel Camacho [address] [place], [place] [address] [place] [address]
[2018-10-12] MEDS ORDERED: SODIUM CHLORIDE 0.9% 1000 ML BAG IV ONE (10:30)
--- NOTE | 2018-10-12 11:18 | NUR ---
labs hemolyzed; repeated with new draw of 30cc waste from port.
--- NOTE | 2018-10-12 12:00 | Diagnostic Imaging Report ---
EXAMINATION: CXR 2 VIEW - HOPD INDICATION: Chest pain, dehydration. COMPARISON: Chest radiograph 09/20/2018. FINDINGS: TUBES and LINES: There is a left-sided chest port in unchanged position. The port is horizontal in orientation, and the catheter takes a sharp angulation proximally and has irregular contour at the angulation. No catheter discontinuity. The catheter tip is in the upper SVC. LUNGS: Lungs are moderately inflated. Lungs are clear. There is no evidence of pneumonia or pulmonary edema. PLEURA: No pleural effusion or pneumothorax. HEART AND MEDIASTINUM: The cardiomediastinal silhouette is unremarkable. BONES AND SOFT TISSUES: No acute osseous abnormality. UPPER ABDOMEN: No free air under the diaphragm. IMPRESSION: No acute radiographic abnormality. Left-sided chest port is horizontal in orientation and the catheter takes a sharp angle proximally. There is irregular contour of the catheter at the angulation. No port catheter discontinuity. Suggest clinical correlation. Signed by: Dr. Anamika Mullins MD on 10/12/2018 11:57 AM
--- NOTE | 2018-10-12 12:02 | Diagnostic Imaging Report ---
EXAMINATION: WRIST 3VW RT - HOPD INDICATION: Right wrist pain. COMPARISON: None. FINDINGS: No evidence of acute fracture, malalignment, or soft tissue abnormality. IMPRESSION: No acute radiographic abnormality. Signed by: Dr. Anamika Mullins MD on 10/12/2018 11:59 AM
--- NOTE | 2018-10-12 12:30 | NUR ---
PORT A CATH PACKED WITH HEPARIN PER MD ORDER OF 400 UNITS OF HEPARIN. 0.08 ML GIVEN FROM CONC[facility]ATION 5000 UNITS/1CC.
[2018-10-12] MEDS ORDERED: HEPARIN 500 UNITS/5ML MDV INJ NR (12:45)
[2018-10-12] MEDS ORDERED: HEPARIN SOD (PORCINE) 1000 UNIT/ML 10ML MDV IV ONE (12:45)
== END 2018-10-12 13:05 | disposition home or self-care (01) ==
LOC: FSED 09:33
DX: R07.89 Other chest pain (principal); R06.00 Dyspnea, unspecified; R10.13 Epigastric pain; N30.90 Cystitis, unspecified without hematuria; M32.9 Systemic lupus erythematosus, unspecified; F41.9 Anxiety disorder, unspecified; F31.9 Bipolar disorder, unspecified; M79.7 Fibromyalgia
CPT/HCPCS: 71046; 73110; 80053; 80076; 81003; 81025; 82553; 84484; 85025; 93005; 99284; J7030

== ENCOUNTER 2018-11-10 18:40 | Emergency (ER) | payer MEDICARE ==
[~2018-11-10] VITALS: Ht 157.5 cm; Wt 113.4 kg
--- OUTSIDE RECORDS SUMMARY | 2018-11-10 18:44 | XMS REPORT | Clinical Summary ---
Author Author Carlos Manuel [facility] Organization [facility] Address Unknown Phone Unavailable Care Team Providers Care Instructional Designer Name Role Phone Daniel Holliday DO PCP [...] Comments CERVICAL CANCER SCREENING 2008 INFLUENZA VACCINE 02/11/2019 Results Not on fileafter 11/09/2017 Insurance Payer Benefit Subscriber ID Type Phone Address Plan / Group UHC MEDICAID [employer] xxxxxxxxx [facility] Advance Directives Patient has advance care planning documents on file. For more information, izzy mitchell contact: Carlos Manuel Camacho [address] [place], [place] [address] [place] [address]
[2018-11-10] MEDS ORDERED: PREDNISONE 20 MG TAB PO NR (20:00)
[2018-11-10 20:18] VITALS: BP 152/76
== END 2018-11-10 20:22 | disposition home or self-care (01) ==
LOC: FSED 18:40
DX: M79.672 Pain in left foot (principal); M79.671 Pain in right foot; Z88.2 Allergy status to sulfonamides; Z88.8 Allergy status to other drugs, medicaments and biological substances
CPT/HCPCS: 99282

== ENCOUNTER 2018-11-30 19:09 | Inpatient (IN) | payer MEDICARE ==
[~2018-11-30] VITALS: Ht 152.4 cm; Wt 107.6 kg
--- OUTSIDE RECORDS SUMMARY | 2018-11-30 19:12 | XMS REPORT | Clinical Summary ---
Author Author Horowitz [facility] Organization [facility] Address Unknown Phone Unavailable Care Team Providers Care Mail Forwarding System Markup Clerk Name Role Phone Daniel Holliday DO PCP [...] INFLUENZA VACCINE 02/11/2019 Results Not on fileafter 11/29/2017 Insurance Type Payer Benefit Subscriber ID Effective Phone Address Plan / Dates Group O [facility] MEDICAID [facility] xxxxxxxxx 2016-P TYSON MUNOZ [facility] Advance Directives Patient has advance care planning documents on file. For more information, izzy mitchell contact: Carlos Manuel Camacho [address] [place] [phone]
[2018-11-30] MEDS ORDERED: SODIUM CHLORIDE 0.9% 1000ML 1,000 ML IV STA (19:40)
--- NOTE | 2018-11-30 20:50 | NUR ---
CUSTOMER SUCCESS DIRECTOR INFORMED TO CALL OUT TECHNOLOGIST FOR DOPPLER ULTRASOUND AT THIS TIME.
--- NOTE | 2018-11-30 22:05 | NUR ---
DOPPLER TECH AT BEDSIDE AT THIS TIME FOR PT EXAM.
[2018-11-30 23:05] LABS: BASOPHILS % 0.5 % (0.0-1.0); EOSINOPHILS % 0.1 % (0.0-6.0); HEMATOCRIT 36.5 % (34.2-44.1); HEMOGLOBIN 12.5 g/dL (12.0-16.0); LYMPHOCYTES # (AUTO) 2.7 (1.0-3.2); LYMPHOCYTES % 34.7 % (18.0-39.1); MEAN CORPUSCULAR HEMOGLOBIN 30.3 pg (28-32); MEAN CORPUSCULAR HGB CONC 34.2 g/dL (31-35); MEAN CORPUSCULAR VOLUME 88.4 fL (81-99); MONOCYTES # (AUTO) 0.3 (0.2-0.8); MONOCYTES % 3.7 % (4.4-11.3); NEUTROPHILS # (AUTO) 4.7 (2.1-6.9); NEUTROPHILS % 60.1 % (38.7-80.0); PLATELET COUNT 320 x10e3/uL (140-360); RED BLOOD COUNT 4.13 x10e6/uL (3.6-5.1); RED CELL DISTRIBUTION WIDTH 15.4 % (11.7-14.4)
[2018-11-30] MEDS ORDERED: SODIUM CHLORIDE 0.9% 1000ML 1,000 ML ONE (23:14)
[2018-11-30] MEDS ORDERED: ONDANSETRON HCL INJ 2MG/ML 2ML 2 MG/ML VIAL IV STA (23:17)
[2018-11-30] MEDS ORDERED: KETOROLAC TROMETHAMINE 30 MG/ML VIAL IV STA (23:19)
[2018-11-30 23:26] LABS: ALANINE AMINOTRANSFERASE 16 IU/L (0-55); ALBUMIN 2.1 g/dL (3.5-5.0); ALBUMIN/GLOBULIN RATIO 0.6 (0.8-2.0); ALKALINE PHOSPHATASE 221 IU/L (40-150); ANION GAP 15.2 mmol/L (8-16); BLOOD UREA NITROGEN 8 mg/dL (7-26); BUN/CREATININE RATIO 12 (6-25); CALCIUM 9.2 mg/dL (8.4-10.2); CARBON DIOXIDE 26 mmol/L (22-29); CHLORIDE 102 mmol/L (98-107); CREATINE KINASE 11 IU/L (29-168); CREATININE, SERUM 0.67 mg/dL (0.57-1.11); EST GLOMERULAR FILTRATION RATE > 60 ML/MIN (60-); GLUCOSE 86 mg/dL (74-118); INR 0.91; MAGNESIUM 1.4 MG/DL (1.3-2.1); PARTIAL THROMBOPLASTIN TIME 28.6 seconds (23.8-35.5); POTASSIUM 4.2 mmol/L (3.5-5.1); PROTHROMBIN TIME 12.7 seconds (11.9-14.5); SODIUM 139 mmol/L (136-145)
[2018-11-30 23:30] LABS: INFLUENZAE A&B ANTIGEN (RAPID) NEGATIVE (NEGATIVE)
[2018-11-30] MEDS ORDERED: MORPHINE SULFATE INJ 4 MG/ML INJ 1ML IV ONE (23:30)
[2018-11-30 23:31] LABS: STREPTOCOCCUS GRP A ANTIGEN NEGATIVE (NEGATIVE)
[2018-11-30 23:32] LABS: AMPHETAMINES SCREEN,URINE NEGATIVE (NEGATIVE); BENZODIAZEPINES SCREEN,URINE POSITIVE (NEGATIVE); PHENCYCLIDINE SCREEN,URINE NEGATIVE (NEGATIVE)
[2018-11-30 23:36] LABS: B-TYPE NATRIURETIC PEPTIDE2 85.1 pg/mL (0-100)
[2018-11-30 23:39] LABS: BILIRUBIN,URINE 1+ (NEGATIVE); CLARITY,URINE CLEAR (CLEAR); COLOR,URINE YELLOW (YELLOW); KETONES,URINE TRACE (NEGATIVE); LEUKOCYTE ESTERASE ,URINE NEGATIVE (NEGATIVE); NITRITE,URINE NEGATIVE (NEGATIVE); PROTEIN,URINE DIPSTICK NEGATIVE (NEGATIVE); URINE UROBILINOGEN 0.2 mg/dL (0.2 - 1)
[2018-11-30 23:44] LABS: BACTERIA,URINE FEW /HPF; EPITHELIAL CELLS,URINE FEW /LPF
[2018-12-01] MEDS ORDERED: CEFTRIAXONE SOD 1 GM/NS 50 ML 50 ML IV ONE (00:45)
--- NOTE | 2018-12-01 00:53 | Diagnostic Imaging Report ---
Exam: Rib series History: Pain Comparison: None. Findings: No fracture or malalignment. No abnormal soft tissue calcification or soft tissue defect. Impression: No displaced rib fracture Signed by: Dr. Oni Mitchell M.D. on 12/01/2018 12:49 AM
[2018-12-01] MEDS ORDERED: ONDANSETRON HCL INJ 2MG/ML 2ML 2 MG/ML VIAL IV STA (01:19)
[2018-12-01] MEDS ORDERED: HYDROMORPHONE 2MG/ML 2 MG/ML ML IV STA (01:19)
[2018-12-01] MEDS ORDERED: SODIUM CHLORIDE 0.9% 1000ML 1,000 ML IV STA (01:19)
[2018-12-01] MEDS ORDERED: METOPROLOL TARTRATE 25 MG TAB PO ONE (02:00)
--- NOTE | 2018-12-01 02:50 | NUR ---
dr norris in room assesing patient, dr norris leaning towards a lupus flairup and informed patient of decision to admit to the hospital
[2018-12-01] MEDS ORDERED: METHYLPREDNISOLONE SOD SUCC 125 MG/2ML VIAL IV STA (03:01)
[2018-12-01] MEDS ORDERED: FAMOTIDINE 20 MG/2 ML VIAL IV STA (03:01)
--- NOTE | 2018-12-01 03:04 | NUR ---
rash noted to patients face, no difficulty breathing, toungue and throat intact, no facial swelling noted. dr jr frye rash
--- NOTE | 2018-12-01 03:11 | NUR ---
recieved med orders for facial rash since she did not have rash upon initial assesment. patients reports no difficulty breathing
[2018-12-01] MEDS ORDERED: DIPHENHYDRAMINE HCL INJ 50 MG/ML VIAL IV ONE (03:15)
[2018-12-01 03:16] LABS: THYROID STIMULATING HORMONE 1.201 uIU/mL (0.350-4.940)
[2018-12-01] MEDS ORDERED: MORPHINE SULFATE 2 MG/ML SYR 1ML IV PRN (03:45)
--- NOTE | 2018-12-01 03:46 | NUR ---
AUDIENCE DEVELOPMENT MANAGER CALLED FOR CALL OUT FOR ECHO.
--- OUTSIDE RECORDS SUMMARY | 2018-12-01 03:47 | XMS REPORT | Clinical Summary ---
Author Author [facility] Organization [facility] Address Unknown Phone Unavailable Care Team Providers Care Butadiene Converter Utility Operator Name Role Phone Daniel Holliday DO PCP [...] INFLUENZA VACCINE 02/11/2019 Results Not on fileafter 11/30/2017 Insurance Type Payer Benefit Subscriber ID Effective Phone Address Plan / Dates Group O [facility] MEDICAID [facility] xxxxxxxxx 2016-P TYSON MUNOZ [facility] Advance Directives Patient has advance care planning documents on file. For more information, izzy mitchell contact: Carlos Manuel Camacho [address] [place] [phone]
[2018-12-01] MEDS: METOPROLOL TARTRATE 25 MG TAB PO SCH ×2 (05:49→16:40)
[2018-12-01 06:34] LABS: CREATINE KINASE 14 IU/L (29-168)
--- NOTE | 2018-12-01 07:04 | NUR ---
walking rounds with neel barton
[2018-12-01] MEDS ORDERED: MORPHINE SULFATE INJ 4 MG/ML INJ 1ML IV PRN ×2 (07:15→13:15)
[2018-12-01] MEDS: ONDANSETRON HCL INJ 2MG/ML 2ML 2 MG/ML VIAL IV PRN ×4 (07:24→21:25)
[2018-12-01] MEDS ORDERED: ACETAMINOPHEN 325 MG TAB PO PRN (10:30)
[2018-12-01] MEDS ORDERED: HYDRALAZINE HCL 20 MG/ML VIAL IV PRN (10:30)
[2018-12-01 11:04] VITALS: BP 147/94
[2018-12-01] MEDS ORDERED: CEFTRIAXONE SOD 1 GM/NS 50 ML 50 ML IV SCH (11:15)
[2018-12-01] MEDS ORDERED: GABAPENTIN 300 MG CAP PO SCH ×2 (11:15→17:00)
[2018-12-01 11:30] VITALS: BP 134/88
[2018-12-01 12:22] LABS: CREATINE KINASE 15 IU/L (29-168)
[2018-12-01 12:30] VITALS: BP 137/92
[2018-12-01] MEDS: MORPHINE SULFATE INJ 4 MG/ML INJ 1ML IV PRN ×3 (13:45→21:24)
--- NOTE | 2018-12-01 14:21 | NUR ---
Left sided rae-cath accessed with a 20 gauge 1" Guerrero Needle; pt tolerated well; good draw and flush
[2018-12-01] MEDS ORDERED: LYRICA100 MG PO (15:45)
[2018-12-01] MEDS ORDERED: ZANAFLEX4 M1 PO (15:45)
[2018-12-01] MEDS ORDERED: TRANSDERM-SCOP1 EACH TD (15:45)
[2018-12-01] MEDS ORDERED: LORAZEPAM0.5 MG PO (15:45)
[2018-12-01] MEDS ORDERED: SPIRONOLACTONE25 MG PO (15:45)
[2018-12-01] MEDS ORDERED: MAGNESIUM OXID400 MG PO (15:45)
[2018-12-01] MEDS ORDERED: LEVONORG-ETH E1 EACH PO (15:45)
[2018-12-01 16:15] VITALS: BP 137/89
[2018-12-01] MEDS ORDERED: LORAZEPAM 0.5 MG TAB PO PRN (16:15)
[2018-12-01] MEDS ORDERED: TIZANIDINE HCL 4 MG TAB PO PRN (16:30)
[2018-12-01] MEDS: FAMOTIDINE 20 MG TAB PO SCH (16:42)
[2018-12-01] MEDS: PREGABALIN 50 MG CAP PO SCH ×2 (16:48→21:25)
--- NOTE | 2018-12-01 17:07 | Diagnostic Imaging Report ---
History: Neuropathic pain. Comparison studies: None Technique: Sagittal and axial T2 FS, axial DWI, axial T2*GRE, axial T1 FLAIR and axial coronal T2 FLAIR. Intravenous contrast: None Findings: Scalp: Normal in signal. No masses. Bone marrow: Normal in signal intensity. Brain sulci: Appropriate for age. Ventricles: Normal in size. No hydrocephalus. Extra axial spaces: No mass, no fluid collection. Parenchyma: Single subtle T2 FLAIR hyperintensity along the left frontal periventricular white matter is nonspecific. No other signal abnormalities. Specifically, no signal abnormalities identified in the corpus callosum, basal ganglia or posterior fossa. No mass, hemorrhage, acute ischemia or cortical insults. Suprasellar region: Mildly expanded, partially CSF filled sella, a nonspecific finding. Consider idiopathic intracranial hypertension only in the appropriate clinical setting. Craniocervical junction: Patent foramen magnum. No Chiari malformation. Vessels: Normal flow-voids in the arteries and sinuses. IMPRESSION: 1. No acute intracranial abnormalities. 2. Single small left frontal periventricular white matter signal abnormality is nonspecific. Findings may reflect incidental gliosis/ependymitis granularis which is of clinical significance. Consider demyelinating disease only in the appropriate clinical setting. 3. Incidental partially CSF filled sella, a nonspecific finding. Similar findings can be seen with idiopathic intracranial hypertension in the appropriate clinical context. Signed by: Dr. Tod Pierce M.D. on 12/01/2018 5:04 PM
--- NOTE | 2018-12-01 18:20 | NUR ---
MRI results were read to Dr. Mosher. No orders received at this time.
--- NOTE | 2018-12-01 19:28 | NUR ---
Patient received lying in bed. AAO x 3. Patient complained of pain to bilateral feet. Medication would be administered per eMAR. No signs of respiratory distress. Fall precautions implemented. Patient instructed to call for assistance when needed. Call light within reach.
[2018-12-01 20:37] VITALS: BP 131/96
[2018-12-01 21:15] VITALS: BP 131/96
[2018-12-01 21:17] LABS: CREATINE KINASE MB 0.4 ng/mL (0-5.0)
[2018-12-01] MEDS: GABAPENTIN 300 MG CAP PO SCH (21:25)
[2018-12-02] VITALS (8 sets, daily range): BP systolic 91–164; BP diastolic 51–95
[2018-12-02] MEDS: METOPROLOL TARTRATE 25 MG TAB PO SCH ×2 (03:23→03:24)
--- NOTE | 2018-12-02 03:48 | NUR ---
Patient complained of pain (8/10) to bilateral feet. Lima 10mg-325mg was offered to patient. Patient refused shouting "I want my morphine ! !. I want what the doctor prescribed!" Explanation by RN as to why morphine could not be administered due to low blood pressure (95/53) was disregarded. Patient continued to state and cry that she had not had pain medication in 7 hours. Will continue to monitor.
[2018-12-02] MEDS ORDERED: SODIUM CHLORIDE 0.9% 250ML 250 ML ONE (04:46)
[2018-12-02 05:15] LABS: BASOPHILS % 0.1 % (0.0-1.0); HEMATOCRIT 29.8 % (34.2-44.1); HEMOGLOBIN 9.6 g/dL (12.0-16.0); LYMPHOCYTES % 42.3 % (18.0-39.1); MEAN CORPUSCULAR HEMOGLOBIN 29.9 pg (28-32); MEAN CORPUSCULAR HGB CONC 32.2 g/dL (31-35); MONOCYTES # (AUTO) 0.4 (0.2-0.8); MONOCYTES % 5.3 % (4.4-11.3); NEUTROPHILS # (AUTO) 3.6 (2.1-6.9); NEUTROPHILS % 50.9 % (38.7-80.0); PLATELET COUNT 230 x10e3/uL (140-360); RED BLOOD COUNT 3.21 x10e6/uL (3.6-5.1); RED CELL DISTRIBUTION WIDTH 15.7 % (11.7-14.4)
[2018-12-02 05:28] LABS: MEAN CORPUSCULAR VOLUME 92.8 fL (81-99)
[2018-12-02 05:32] LABS: ALANINE AMINOTRANSFERASE 12 IU/L (0-55); ALBUMIN 1.7 g/dL (3.5-5.0); ALBUMIN/GLOBULIN RATIO 0.7 (0.8-2.0); ALKALINE PHOSPHATASE 142 IU/L (40-150); BLOOD UREA NITROGEN 12 mg/dL (7-26); BUN/CREATININE RATIO 17 (6-25); CALCIUM 8.2 mg/dL (8.4-10.2); CARBON DIOXIDE 27 mmol/L (22-29); CHLORIDE 106 mmol/L (98-107); CHOL/HDL RATIO 2.2 (3.0-3.6); CHOLESTEROL 110 MD/DL (0-199); EST GLOMERULAR FILTRATION RATE > 60 ML/MIN (60-); GLUCOSE 101 mg/dL (74-118); HDL CHOLESTEROL 51 MG/DL (40-60); LDL CHOLESTEROL 39 MG/DL (60-130); SODIUM 138 mmol/L (136-145); TRIGLYCERIDES 98 MG/DL (0-149)
[2018-12-02] MEDS: CEFTRIAXONE SOD 1 GM/NS 50 ML 50 ML IV SCH (06:20)
--- NOTE | 2018-12-02 07:00 | NUR ---
BEDSIDE SHIFT REPORT RECEIVED FROM NIGHT RN. PT DENIES NEEDS AT THIS TIME.
--- NOTE | 2018-12-02 07:00 | NUR ---
Walking rounds done. Patient resting comfortably. Shift report given to oncoming nurse.
[2018-12-02] MEDS: FAMOTIDINE 20 MG TAB PO SCH ×2 (07:55→18:05)
[2018-12-02] MEDS: MORPHINE SULFATE INJ 4 MG/ML INJ 1ML IV PRN ×4 (07:56→20:01)
[2018-12-02] MEDS: ONDANSETRON HCL INJ 2MG/ML 2ML 2 MG/ML VIAL IV PRN ×4 (07:59→22:00)
[2018-12-02] MEDS: SPIRONOLACTONE 25 MG TAB PO SCH (08:13)
[2018-12-02] MEDS: PREGABALIN 50 MG CAP PO SCH ×3 (08:13→21:07)
[2018-12-02] MEDS: GABAPENTIN 300 MG CAP PO SCH ×3 (08:14→21:07)
[2018-12-02] MEDS: MAGNESIUM OXIDE 400 MG TAB PO SCH (08:14)
[2018-12-02] MEDS: OYST-CAL-D 500MG TABLET PO SCH ×2 (08:17→18:05)
[2018-12-02] MEDS: HYDROCODONE/APAP 10MG-325MG TAB PO PRN ×3 (10:42→22:00)
--- NOTE | 2018-12-02 11:00 | NUR ---
DR. LAMB CALLED PER LIANNA'S REQUEST AND HEAD MRI DISCUSSED. DR. LAMB STATED PT CAN BE SEEN OUT PATIENT.
--- NOTE | 2018-12-02 15:51 | NUR ---
Nutrition Screen Note RD Recommendation for Physician: -Continue current diet as ordered -Pt refused oral nutrition supplements. -Rec appetite stimulant if PO intake continues to be poor Plan of Care: RD following, monitoring for tolerance and adequacy Nutrition reason for involvement: Nutrition Risk Trigger MST Principal Problems/Diagnoses: chest pain, bilateral foot pain PMH: No H&P in chart GI: abdomen soft and non-tender, LBM 12/02 Skin: intact Labs: (12/02) Ca 8.2 L Meds: Zofran, oscal D, Mg oxide, pepcid Ht: 60in Wt: 237.5lb BMI: 46.4kg/m2 IBW: 100lbs RD Assessment: (12/02) Chart reviewed. 33yo F, who was admitted for chest pain and bilateral foot pain. Visited pt in the room. Pt reported 16lbs weight loss with decreased PO intake for the last 6 months. 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 Pt denies any nausea or vomiting. No chewing or swallowing difficulty noted. No physical sign of muscle/ fat loss upon observation. Family has been bringing foods from home. Pt refused oral nutrition supplements. Obtained food preferences. Will continue to monitor and follow. Malnutrition Evaluation (12/02) The patient does not meet criteria for a specified degree of malnutrition at this time. Will re-evaluate at follow-up as appropriate. Energy intake: <75% of estimated energy requirements for >3 months Weight loss: 16lbs weight loss in 6 months (not meeting criteria) Fat loss: None Muscle loss: None Supporting Evidence: Fluid accumulation: unable to evaluate Functional Status: no changes Diet Education Needs Assessment: Diet education not indicated. Nutrition Care Level: low Signed: Maria Ines Montiel, MS, RD, LD
[2018-12-03] MEDS: MORPHINE SULFATE INJ 4 MG/ML INJ 1ML IV PRN ×2 (00:02→04:00)
[2018-12-03 00:26] VITALS: BP 155/96
[2018-12-03] MEDS: HYDROCODONE/APAP 10MG-325MG TAB PO PRN ×2 (02:00→06:00)
[2018-12-03] MEDS: ONDANSETRON HCL INJ 2MG/ML 2ML 2 MG/ML VIAL IV PRN ×2 (02:00→06:00)
[2018-12-03 05:20] VITALS: BP 145/88
[2018-12-03 05:38] LABS: BASOPHILS # (AUTO) 0.1 (0.0-0.1); BASOPHILS % 1.1 % (0.0-1.0); EOSINOPHILS # (AUTO) 0.1 (0.0-0.4); EOSINOPHILS % 1.2 % (0.0-6.0); HEMATOCRIT 30.5 % (34.2-44.1); HEMOGLOBIN 10.3 g/dL (12.0-16.0); LYMPHOCYTES # (AUTO) 4.1 (1.0-3.2); LYMPHOCYTES % 54.4 % (18.0-39.1); MEAN CORPUSCULAR HEMOGLOBIN 30.4 pg (28-32); MEAN CORPUSCULAR HGB CONC 33.8 g/dL (31-35); MONOCYTES # (AUTO) 0.4 (0.2-0.8); MONOCYTES % 4.7 % (4.4-11.3); NEUTROPHILS # (AUTO) 2.7 (2.1-6.9); NEUTROPHILS % 34.9 % (38.7-80.0); PLATELET COUNT 254 x10e3/uL (140-360); RED BLOOD COUNT 3.39 x10e6/uL (3.6-5.1); RED CELL DISTRIBUTION WIDTH 15.1 % (11.7-14.4)
[2018-12-03 05:53] LABS: % IRON SATURATION 83 % (15-50); ANION GAP 10.5 mmol/L (8-16); BLOOD UREA NITROGEN 13 mg/dL (7-26); BUN/CREATININE RATIO 19 (6-25); CALCIUM 8.3 mg/dL (8.4-10.2); CARBON DIOXIDE 27 mmol/L (22-29); CHLORIDE 105 mmol/L (98-107); CREATININE, SERUM 0.68 mg/dL (0.57-1.11); EST GLOMERULAR FILTRATION RATE > 60 ML/MIN (60-); GLUCOSE 88 mg/dL (74-118); IRON 136 ug/dL (50-170); POTASSIUM 3.5 mmol/L (3.5-5.1); SODIUM 139 mmol/L (136-145); TOTAL IRON BINDING CAPACITY 164 ug/dL (261-478); TRANSFERRIN 117 mg/dL (180-382)
[2018-12-03 06:15] LABS: FERRITIN 267.84 ng/mL (4.63-204.00)
[2018-12-03] MEDS: CEFTRIAXONE SOD 1 GM/NS 50 ML 50 ML IV SCH (06:26)
[2018-12-03] MEDS ORDERED: DIPHENHYDRAMINE HCL 25 MG CAP PO PRN (06:45)
[2018-12-03 06:55] LABS: FOLATE 2.1 ng/mL (7.0-15.4)
--- NOTE | 2018-12-03 07:00 | NUR ---
BEDSIDE SHIFT REPORT RECEIVED FROM NIGHT RN. PT DENIES NEEDS AT THIS TIME.
[2018-12-03] MEDS ORDERED: FOLIC ACID1 MG PO (07:55)
[2018-12-03] MEDS ORDERED: BELBUCA PO (08:22)
[2018-12-03] MEDS ORDERED: METOPROLOL TART25 MG PO (08:25)
[2018-12-03] MEDS: GABAPENTIN 300 MG CAP PO SCH (08:30)
[2018-12-03] MEDS: OYST-CAL-D 500MG TABLET PO SCH (08:30)
[2018-12-03] MEDS: MAGNESIUM OXIDE 400 MG TAB PO SCH (08:30)
[2018-12-03] MEDS: FAMOTIDINE 20 MG TAB PO SCH (08:30)
[2018-12-03] MEDS: SPIRONOLACTONE 25 MG TAB PO SCH (08:30)
[2018-12-03 08:34] VITALS: BP 138/83
[2018-12-03 09:00] VITALS: BP 138/83
[2018-12-03] MEDS ORDERED: METOPROLOL TARTRATE 25 MG TAB PO SCH (09:00)
--- NOTE | 2018-12-04 10:59 | Discharge Summary ---
ADMISSION DIAGNOSES: Bilateral foot pain, chest pain, urinary tract infection, depression, anxiety, fibromyalgia, and lupus. DISCHARGE DIAGNOSES: Bilateral foot pain, chest pain, depression, anxiety, fibromyalgia, lupus, rule out acute coronary syndrome, and rule out urinary tract infection. HISTORY: The patient has a history of pancreatitis, anemia, PCOS, peripheral neuropathy, lupus, fibromyalgia, Raynaud, bipolar depression, anxiety, Gitelman syndrome, and vasculitis. SURGICAL HISTORY: Exploratory lap with cholecystectomy, Port-A-Cath placement, facial lipoma removal, and kidney biopsy x4. FAMILY HISTORY: The patient's grandpa and uncle had diabetes. The patient's aunt has cancer. The patient's uncle had a stroke. SOCIAL HISTORY: Noncontributory. HOSPITAL COURSE: A 33-year-old female complains of bilateral foot pain for 3 weeks that worsened on the day prior to admission. The pain is constant burning with intermittent shooting pain. She used Penetrex with little improvement. She denies fall and trauma. She also says she heard a pop in her right chest area followed by chest pain. The chest pain is intermittent, dull, and worsens with deep breath. On admission, the patient had bilateral lower extremity venous Doppler, which was negative. Gabapentin was started. Neurology was consulted per ER doctor. EKG showed sinus tach of 115. Echo showed an EF of 56%. Chest x-ray with rib showed no displaced rib fracture. MRI of the brain showed no acute intracranial abnormality. Single small left frontal periventricular white matter signal abnormality is nonspecific. Findings may reflect incidental or which is of clinical significance. Consider demyelinating disease only in the appropriate setting. Incidental . Neurology was informed of the MRI findings and said she can follow up outpatient. Blood cultures were negative. Throat culture negative. Urine culture negative. Group A screen and strep screen negative. Influenza negative. Double-stranded DNA less than 1. Urine drug screen positive for opiates and benzos. Troponins were negative x3. Pain Management was consulted, who wrote the patient a prescription for Belbuca. She was also given a prescription for metoprolol for her tachycardia, which she says she stopped taking intermittently due to her inability to get pain medicines when her blood pressure is low and folic acid for folate deficiency. The patient will follow up with Dr. Mosher outpatient and for any necessary pain med prescriptions. The patient understands discharge instructions and agrees to plan. Vital signs stable. The patient is afebrile. Dictated by Sandra Pollock NP MD CELIA Alexandre/MODJamal /[id number]
== END 2018-12-03 11:28 | disposition home or self-care (01) | DRG 74 ==
LOC: ER 19:09 → ERHOLD 12-01 03:44 → MED/SURG2 12-01 09:54
PROVIDERS: ADMIT Internal Medicine; ATTEND Internal Medicine
DX: G62.9 Polyneuropathy, unspecified (principal); N39.0 Urinary tract infection, site not specified; I24.9 Acute ischemic heart disease, unspecified; M79.7 Fibromyalgia; M32.9 Systemic lupus erythematosus, unspecified; M79.672 Pain in left foot; M79.671 Pain in right foot; F41.9 Anxiety disorder, unspecified; R00.0 Tachycardia, unspecified; E28.2 Polycystic ovarian syndrome; F31.9 Bipolar disorder, unspecified; R07.9 Chest pain, unspecified; R60.0 Localized edema; R07.89 Other chest pain
CPT/HCPCS: 36415; 70551; 71101; 80048; 80053; 80061; 80307; 81001; 81025; 82550; 82553; 82607; 82728; 82746; 83518; 83540; 83605; 83735; 83880; 84436; 84443; 84466; 84479; 84484; 85025; 85379; 85610; 85730; 86225; 87040; 87070; 87086; 87400; 93005; 93306; 93970; 99284; J0696; J1200; J1642; J1885; J2270; J2405; J2930; J7030; J7050

== ENCOUNTER 2018-12-04 07:19 | Emergency (ER) | payer MEDICARE ==
[~2018-12-04] VITALS: Ht 152.4 cm; Wt 98.0 kg
[~2018-12-04 07:19] MED LIST changes: +BELBUCA PO; +FOLIC ACID1 MG PO; +LEVONORG-ETH E1 EACH PO; +LORAZEPAM0.5 MG PO; +LYRICA100 MG PO; +MAGNESIUM OXID400 MG PO; +METOPROLOL TART25 MG PO; +SPIRONOLACTONE25 MG PO; +TRANSDERM-SCOP1 EACH TD; +ZANAFLEX4 M1 PO
--- OUTSIDE RECORDS SUMMARY | 2018-12-04 07:21 | XMS REPORT | Clinical Summary ---
Author Author [facility] Organization [facility] Address Unknown Phone Unavailable Care Team Providers Care Ophthalmologist Name Role Phone Daniel Holliday DO PCP [...] Health Maintenance Due Date Last Done Comments INFLUENZA VACCINE 02/11/2019 Results Not on fileafter 12/03/2017 Insurance Type Payer Benefit Subscriber ID Effective Phone Address Plan / Dates Group O [facility] MEDICAID [facility] xxxxxxxxx 2016-P [facility] LILIANA MUNOZ [facility] Advance Directives Patient has advance care planning documents on file. For more information, izzy mitchell contact: Carlos Manuel Camacho [address] [place] [phone]
--- OUTSIDE RECORDS SUMMARY | 2018-12-04 07:21 | XMS REPORT | Clinical Summary ---
Author Author DIDI [facility] Address Unknown Phone Unavailable Care Team Providers Care Bmw Service Technician Name Role Phone PCP Unavailable Allergies No Known Allergies Medications End Date Status Medication Sig Dispensed Refills Start Date Active lisinopril-hydrochlorothi Take 1 tablet 0 azide by mouth (PRINZIDE,ZESTORETIC) daily. 10-12.5 mg per tablet Active Problems Not on file Social History Date Tobacco Use Types Packs/Day Years Used Current Some Day Smoker Alcohol Use Drinks/Week oz/Week Comments No Sex Assigned at Date Recorded Not on file Industry Job Start Date Occupation Not on file Not on file Not on file Travel End Travel History Travel Start No recent travel history available. Last Filed Vital Signs Not on file Plan of Treatment Not on file Results Not on fileafter 12/03/2017 Insurance Payer Benefit Subscriber ID Type Phone Address Plan / Group [facility] [place] xxxxxxxxx [facility] PPO xxxxxxxxxxxx PPO [phone] [address] [place] [address] CHOICE amily (Home) [place] [address]
[2018-12-04] MEDS ORDERED: PROMETHAZINE 25MG/ NS 50ML (IV) IV NR (08:30)
[2018-12-04] MEDS ORDERED: METOPROLOL TARTRATE INJ 1 MG/ML VIAL IV NR (09:00)
[2018-12-04 09:03] LABS: BASOPHILS % 0.4 % (0.0-1.0); EOSINOPHILS % 0.4 % (0.0-6.0); HEMATOCRIT 30.3 % (34.2-44.1); HEMOGLOBIN 10.2 g/dL (12.0-16.0); LYMPHOCYTES # (AUTO) 2.9 (1.0-3.2); LYMPHOCYTES % 27.1 % (18.0-39.1); MEAN CORPUSCULAR HEMOGLOBIN 30.2 pg (28-32); MEAN CORPUSCULAR HGB CONC 33.7 g/dL (31-35); MEAN CORPUSCULAR VOLUME 89.6 fL (81-99); MONOCYTES # (AUTO) 0.6 (0.2-0.8); MONOCYTES % 5.1 % (4.4-11.3); NEUTROPHILS # (AUTO) 7.1 (2.1-6.9); NEUTROPHILS % 65.9 % (38.7-80.0); PLATELET COUNT 258 x10e3/uL (140-360); RED BLOOD COUNT 3.38 x10e6/uL (3.6-5.1); RED CELL DISTRIBUTION WIDTH 15.3 % (11.7-14.4)
[2018-12-04 09:04] LABS: BILIRUBIN,URINE NEGATIVE (NEGATIVE); CLARITY,URINE SL CLOUDY (CLEAR); COLOR,URINE YELLOW (YELLOW); KETONES,URINE 1+ (NEGATIVE); LEUKOCYTE ESTERASE ,URINE TRACE (NEGATIVE); NITRITE,URINE NEGATIVE (NEGATIVE); PROTEIN,URINE DIPSTICK NEGATIVE (NEGATIVE); URINE UROBILINOGEN 0.2 mg/dL (0.2 - 1)
[2018-12-04 09:17] LABS: BENZODIAZEPINES SCREEN,URINE POSITIVE (NEGATIVE)
[2018-12-04 09:18] LABS: AMPHETAMINES SCREEN,URINE NEGATIVE (NEGATIVE); PHENCYCLIDINE SCREEN,URINE NEGATIVE (NEGATIVE)
[2018-12-04 09:35] LABS: EPITHELIAL CELLS,URINE RARE /LPF; WBC,URINE (MAN) 0-5 /HPF (0-5); YEAST,URINE RARE
[2018-12-04] MEDS ORDERED: KETOROLAC TROMETHAMINE 30 MG/ML VIAL IV NR (10:36)
[2018-12-04 11:08] LABS: ALANINE AMINOTRANSFERASE 14 IU/L (0-55); ALBUMIN 1.9 g/dL (3.5-5.0); ALBUMIN/GLOBULIN RATIO 0.9 (0.8-2.0); ALKALINE PHOSPHATASE 145 IU/L (40-150); AMYLASE 50 U/L (25-125); ANION GAP 10.9 mmol/L (8-16); BLOOD UREA NITROGEN 9 mg/dL (7-26); BUN/CREATININE RATIO 16 (6-25); CALCIUM 7.9 mg/dL (8.4-10.2); CARBON DIOXIDE 27 mmol/L (22-29); CHLORIDE 106 mmol/L (98-107); CREATINE KINASE 77 IU/L (29-168); CREATININE, SERUM 0.57 mg/dL (0.57-1.11); EST GLOMERULAR FILTRATION RATE > 60 ML/MIN (60-); GLUCOSE 88 mg/dL (74-118); LIPASE 9 U/L (8-78); SODIUM 141 mmol/L (136-145)
[2018-12-04 11:09] LABS: POTASSIUM 2.9 mmol/L (3.5-5.1)
[2018-12-04] MEDS ORDERED: POTASSIUM CHLORIDE 20 MEQ TAB CR PO NR (11:30)
[2018-12-04] MEDS ORDERED: POTASSIUM CHLORIDE 10MEQ/100ML 100 ML IV ONE (11:30)
[2018-12-04] MEDS ORDERED: SODIUM CHLORIDE 0.9% 1000ML 1,000 ML ONE (11:46)
[2018-12-04] MEDS ORDERED: SODIUM CHLORIDE 0.9% 1000ML 1,000 ML IV ONE (12:00)
[2018-12-04 14:06] VITALS: BP 142/97
== END 2018-12-04 14:28 | disposition home or self-care (01) ==
LOC: ER 07:19
DX: R11.2 Nausea with vomiting, unspecified (principal); R19.7 Diarrhea, unspecified; R10.9 Unspecified abdominal pain; E87.6 Hypokalemia; K52.9 Noninfective gastroenteritis and colitis, unspecified
CPT/HCPCS: 36415; 80053; 80307; 81001; 82150; 82550; 82553; 83690; 84484; 85025; 93005; 99284; J1642; J1885; J2550; J3480; J7030

== ENCOUNTER 2019-02-08 21:37 | Emergency (ER) | payer MEDICARE, OTHER ==
[~2019-02-08] VITALS: Ht 152.4 cm; Wt 104.3 kg
--- OUTSIDE RECORDS SUMMARY | 2019-02-08 21:40 | XMS REPORT | Clinical Summary ---
Author Author [facility] Organization [facility] Address Unknown Phone Unavailable Care Team Providers Care Special Educator Name Role Phone Daniel Holliday DO PCP [...] INFLUENZA VACCINE 02/11/2019 Results Not on fileafter 02/07/2018 Insurance Type Payer Benefit Subscriber ID Effective Phone Address Plan / Dates Group O [facility] MEDICAID [facility] xxxxxxxxx 2016-P [facility] LILIANA MUNOZ [facility] Advance Directives Patient has advance care planning documents on file. For more information, izzy mitchell contact: Carlos Manuel Camacho [address] [place] [phone]
--- OUTSIDE RECORDS SUMMARY | 2019-02-08 21:40 | XMS REPORT | Clinical Summary ---
Author Author DIDI [facility] Address Unknown Phone Unavailable Care Team Providers Care Special Agent Fbi Name Role Phone PCP Unavailable Allergies No [...] Not on file Results Not on fileafter 02/07/2018 Insurance Payer Benefit Subscriber ID Type Phone Address Plan / Group [facility] [facility] xxxxxxxxx [facility] PPO xxxxxxxxxxxx PPO [phone] [address] [place] [address] CHOICE amily (Home) [place] [address]
[2019-02-08] MEDS ORDERED: ONDANSETRON HCL INJ 2MG/ML 2ML 2 MG/ML VIAL IV NR ×2 (22:00→23:45)
[2019-02-08] MEDS ORDERED: METOCLOPRAMIDE HCL 10 MG/2ML VIAL IV NR ×2 (22:00→23:45)
[2019-02-08] MEDS ORDERED: ASPIRIN 81 MG CHEW TAB PO ONE (22:00)
[2019-02-08] MEDS ORDERED: SODIUM CHLORIDE 0.9% 1000ML 1,000 ML IV ONE (22:00)
[2019-02-08] MEDS ORDERED: PANTOPRAZOLE 40 MG 10ML VIAL IV NR ×2 (22:00→23:45)
--- NOTE | 2019-02-08 22:45 | NUR ---
per dr asencio, may access port
[2019-02-08 23:29] LABS: BILIRUBIN,URINE SMALL (NEGATIVE); CLARITY,URINE CLOUDY (CLEAR); COLOR,URINE YELLOW (YELLOW); KETONES,URINE TRACE (NEGATIVE); LEUKOCYTE ESTERASE ,URINE SMALL (NEGATIVE); NITRITE,URINE NEGATIVE (NEGATIVE); PROTEIN,URINE DIPSTICK 1+ (NEGATIVE); URINE UROBILINOGEN 0.2 mg/dL (0.2 - 1)
[2019-02-08 23:38] LABS: WBC,URINE (MAN) 21-50 /HPF (0-5)
[2019-02-08 23:40] LABS: BACTERIA,URINE FEW /HPF; EPITHELIAL CELLS,URINE FEW /LPF
[2019-02-08 23:41] LABS: CALCIUM OXALATE CRYSTALS,UR FEW (FEW); MUCUS,URINE MANY (RARE); TRIPLE PHOSPHATE CRYSTAL,UR FEW (FEW)
[2019-02-08 23:57] LABS: BASOPHILS % 0.5 % (0.0-1.0); HEMATOCRIT 38.8 % (34.2-44.1); HEMOGLOBIN 13.5 g/dL (12.0-16.0); LYMPHOCYTES # (AUTO) 2.4 (1.0-3.2); MEAN CORPUSCULAR HGB CONC 34.8 g/dL (31-35); MEAN CORPUSCULAR VOLUME 89.2 fL (81-99); MONOCYTES # (AUTO) 0.3 (0.2-0.8); MONOCYTES % 4.2 % (4.4-11.3); NEUTROPHILS # (AUTO) 3.4 (2.1-6.9); NEUTROPHILS % 55.8 % (38.7-80.0); PLATELET COUNT 383 x10e3/uL (140-360); RED BLOOD COUNT 4.35 x10e6/uL (3.6-5.1); RED CELL DISTRIBUTION WIDTH 16.3 % (11.7-14.4)
[2019-02-09 00:19] LABS: AMYLASE 78 U/L (25-125); LIPASE 14 U/L (8-78)
[2019-02-09 00:22] LABS: ALANINE AMINOTRANSFERASE 30 IU/L (0-55); ALBUMIN 2.3 g/dL (3.5-5.0); ALBUMIN/GLOBULIN RATIO 0.6 (0.8-2.0); ALKALINE PHOSPHATASE 415 IU/L (40-150); ANION GAP 20.5 mmol/L (8-16); BLOOD UREA NITROGEN 12 mg/dL (7-26); BUN/CREATININE RATIO 17 (6-25); CALCIUM 8.8 mg/dL (8.4-10.2); CARBON DIOXIDE 26 mmol/L (22-29); CHLORIDE 96 mmol/L (98-107); CREATINE KINASE 45 IU/L (29-168); CREATININE, SERUM 0.72 mg/dL (0.57-1.11); EST GLOMERULAR FILTRATION RATE > 60 ML/MIN (60-); GLUCOSE 99 mg/dL (74-118); POTASSIUM 4.5 mmol/L (3.5-5.1); SODIUM 138 mmol/L (136-145)
[2019-02-09] MEDS ORDERED: CEFTRIAXONE SOD 1 GM/NS 50 ML 50 ML IV ONE (01:00)
[2019-02-09 01:44] VITALS: BP 104/72
--- NOTE | 2019-02-09 01:44 | Diagnostic Imaging Report ---
EXAM: Abdomen 1 Views INDICATION: ABD PAIN, VOMITING COMPARISON: Chest radiograph 10/12/2018 FINDINGS: Left chest wall chemotherapy port with slightly redundant catheter presumably in the left chest wall soft tissues, the distal tip of the catheter is in the left brachiocephalic vein/superior vena cava confluence. Lungs well aerated. No pleural effusion. No pneumothorax. Normal heart size. No dilated loops of small bowel. No renal calculi. No abnormal soft tissue masses. Mild degenerative changes in the spine and pelvis. IMPRESSION: No acute radiographic abnormality. Degenerative changes in the spine. Signed by: Agustín Gerard DO on 02/09/2019 1:41 AM
[2019-02-20] MEDS ORDERED: POTASSIUM CHLO10 MEQ PO (06:59)
[2019-02-20] MEDS ORDERED: Calcium Carbonate 500MG Chew PO (06:59)
[2019-02-20] MEDS ORDERED: KEFLEX500 MG PO (06:59)
== END 2019-02-09 01:52 | disposition home or self-care (01) ==
LOC: ER 21:37
DX: R10.13 Epigastric pain (principal); R11.2 Nausea with vomiting, unspecified; N30.91 Cystitis, unspecified with hematuria
CPT/HCPCS: 36415; 74022; 80053; 81001; 81025; 82150; 82550; 82553; 83690; 84484; 85025; 93005; 99283; C9113; J0696; J2405; J2765; J7030

== ENCOUNTER 2019-02-18 15:35 | Observation (INO) | payer MEDICARE, OTHER ==
[~2019-02-18] VITALS: Ht 152.4 cm; Wt 104.3 kg
--- OUTSIDE RECORDS SUMMARY | 2019-02-18 15:37 | XMS REPORT | Clinical Summary ---
Author Author [facility]owitz [facility] Organization [facility] Address Unknown Phone Unavailable Care Team Providers Care Aids Nurse Name Role Phone Daniel Holliday DO PCP [...] INFLUENZA VACCINE 02/11/2019 Results Not on fileafter 02/17/2018 Insurance Type Payer Benefit Subscriber ID Effective Phone Address Plan / Dates Group O [facility] MEDICAID [facility] xxxxxxxxx 2016-P [facility] mira MUNOZ [facility] Advance Directives Patient has advance care planning documents on file. For more information, izzy mitchell contact: Carlos Manuel Camacho [address] [place] [address]
--- OUTSIDE RECORDS SUMMARY | 2019-02-18 15:38 | XMS REPORT | Clinical Summary ---
Author Author DIDI [facility] Address Unknown Phone Unavailable Care Team Providers Care Sap Director Name Role Phone PCP Unavailable Allergies No [...] Not on file Results Not on fileafter 02/17/2018 Insurance Payer Benefit Subscriber ID Type Phone Address Plan / Group [facility] xxxxxxxxx [facility] PPO xxxxxxxxxxxx PPO [phone] [address] [place] [address] CHOICE amily (Home) [place] [address]
[2019-02-18] MEDS ORDERED: SODIUM CHLORIDE 0.9% 1000ML 1,000 ML IV STA ×2 (15:50→18:34)
--- NOTE | 2019-02-18 16:22 | Diagnostic Imaging Report ---
EXAMINATION: CHEST SINGLE (PORTABLE) INDICATION: Hypotension COMPARISON: Chest radiograph of 09/20/2018, chest and rib radiographs of 12/01/2018, abdomen acute series of 02/09/2019 FINDINGS: LINES/TUBES:Left chest port coils within the chest pocket. The catheter tip terminates in the region of the confluence of innominate veins. EKG leads overlie the chest. LUNGS:The lungs are well-inflated. No focal consolidation or pulmonary edema. PLEURA:No pleural effusion or pneumothorax. MEDIASTINUM:The cardiomediastinal silhouette appears normal in size and shape. BONES/SOFT TISSUES:No acute osseous injury. ABDOMEN:No free air under the diaphragm. IMPRESSION: No focal pneumonia or pulmonary edema. Unchanged coiling of the chest port catheter within the chest pocket. Signed by: Harpreet Warren MD on 02/18/2019 4:18 PM
[2019-02-18 17:37] LABS: BASOPHILS % 0.4 % (0.0-1.0); EOSINOPHILS % 0.1 % (0.0-6.0); HEMATOCRIT 38.3 % (34.2-44.1); HEMOGLOBIN 13.4 g/dL (12.0-16.0); LYMPHOCYTES # (AUTO) 2.7 (1.0-3.2); LYMPHOCYTES % 38.7 % (18.0-39.1); MEAN CORPUSCULAR HEMOGLOBIN 31.4 pg (28-32); MEAN CORPUSCULAR VOLUME 89.7 fL (81-99); MONOCYTES # (AUTO) 0.4 (0.2-0.8); MONOCYTES % 5.3 % (4.4-11.3); NEUTROPHILS # (AUTO) 3.8 (2.1-6.9); NEUTROPHILS % 55.2 % (38.7-80.0); PLATELET COUNT 253 x10e3/uL (140-360); RED BLOOD COUNT 4.27 x10e6/uL (3.6-5.1); RED CELL DISTRIBUTION WIDTH 16.4 % (11.7-14.4)
[2019-02-18 17:47] LABS: BILIRUBIN,URINE SMALL (NEGATIVE); CLARITY,URINE SL CLOUDY (CLEAR); COLOR,URINE ORANGE (YELLOW); KETONES,URINE NEGATIVE (NEGATIVE); LEUKOCYTE ESTERASE ,URINE MODERATE (NEGATIVE); NITRITE,URINE NEGATIVE (NEGATIVE); PROTEIN,URINE DIPSTICK TRACE (NEGATIVE); URINE UROBILINOGEN 0.2 mg/dL (0.2 - 1)
[2019-02-18 17:48] LABS: INR 0.91; PARTIAL THROMBOPLASTIN TIME 20.5 seconds (23.8-35.5); PROTHROMBIN TIME 12.7 seconds (11.9-14.5)
[2019-02-18 17:52] LABS: AMPHETAMINES SCREEN,URINE NEGATIVE (NEGATIVE); BENZODIAZEPINES SCREEN,URINE NEGATIVE (NEGATIVE); PHENCYCLIDINE SCREEN,URINE NEGATIVE (NEGATIVE)
[2019-02-18 18:00] LABS: AMORPHOUS SEDIMENT,URINE FEW (FEW); BACTERIA,URINE FEW /HPF; CALCIUM OXALATE CRYSTALS,UR RARE (FEW); EPITHELIAL CELLS,URINE FEW /LPF; TRANSITIONAL EPI CELLS,URINE FEW
[2019-02-18] MEDS ORDERED: VANCOMYCIN 1GM/NS 250 ML 250 ML IV ONE (18:45)
[2019-02-18] MEDS: CEFEPIME 2 GM/NS 0.9% 100 ML 100 ML IV SCH (19:07)
[2019-02-18 19:21] LABS: ALANINE AMINOTRANSFERASE 26 IU/L (0-55); ALBUMIN 1.9 g/dL (3.5-5.0); ALBUMIN/GLOBULIN RATIO 0.6 (0.8-2.0); ALKALINE PHOSPHATASE 444 IU/L (40-150); ANION GAP 18.2 mmol/L (8-16); BLOOD UREA NITROGEN 7 mg/dL (7-26); BUN/CREATININE RATIO 11 (6-25); CALCIUM 8.4 mg/dL (8.4-10.2); CARBON DIOXIDE 26 mmol/L (22-29); CHLORIDE 99 mmol/L (98-107); CREATINE KINASE 50 IU/L (29-168); CREATININE, SERUM 0.61 mg/dL (0.57-1.11); EST GLOMERULAR FILTRATION RATE > 60 ML/MIN (60-); GLUCOSE 96 mg/dL (74-118); POTASSIUM 3.2 mmol/L (3.5-5.1); SODIUM 140 mmol/L (136-145)
[2019-02-18 19:28] LABS: MAGNESIUM 1.4 MG/DL (1.3-2.1)
[2019-02-18] MEDS ORDERED: POTASSIUM CHLORIDE 20 MEQ TAB CR PO ONE (19:31)
[2019-02-18] MEDS: POTASSIUM CHLORIDE 10MEQ/100ML 100 ML IV SCH ×3 (19:45→21:45)
[2019-02-18] MEDS: ONDANSETRON HCL INJ 2MG/ML 2ML 2 MG/ML VIAL IV PRN (19:45)
--- OUTSIDE RECORDS SUMMARY | 2019-02-18 19:46 | XMS REPORT | Clinical Summary ---
Author Author DIDI [facility] Address Unknown Phone Unavailable Care Team Providers Care Automobile Sales Representative Name Role Phone PCP Unavailable Allergies No [...] ID Type Phone Address Plan / Group [facility] xxxxxxxxx [facility] PPO xxxxxxxxxxxx PPO [phone] [id number] [place] [address] CHOICE amily (Home) [place] [address]
--- OUTSIDE RECORDS SUMMARY | 2019-02-18 19:46 | XMS REPORT | Clinical Summary ---
Author Author [facility] Address Unknown Phone Unavailable Care Team Providers Care Elevator Operator Name Role Phone Daniel Holliday DO [...] Phone Address Plan / Dates Group O [facility] MEDICAID [facility] xxxxxxxxx 2016-P MERGED WITH [facility] mira [facility] Advance Directives Patient has advance care planning documents on file. For more information, izzy mitchell contact: Carlos Manuel Camacho [address] [place] [id number]
--- NOTE | 2019-02-18 20:30 | NUR ---
ATTEMPTED TO GIVE PT POTASSIUM 40 MEQ PO AT THIS TIME, PT WANTED TO WAIT BECAUSE THE PILL IS HARD TO SWALLOW. PT SAYS THAT SHE WILL TRY WHEN SHE GETS TO HER ROOM.
--- NOTE | 2019-02-18 20:42 | NUR ---
REPORT CALLED TO ALEIDA IRWIN AT THIS TIME.
--- NOTE | 2019-02-18 21:00 | NUR ---
PT TRANSFERRED TO IMCU ROOM 197. RECEIVING NURSE AT BEDSIDE.
[2019-02-18 21:12] VITALS: BP 87/72
[2019-02-18] MEDS ORDERED: ACETAMINOPHEN 325 MG TAB PO PRN (21:30)
--- NOTE | 2019-02-18 21:30 | NUR ---
called dr Kirby that patient was agitated and wanted to leave AMA. also she refused potassium IV stated that its hurting her. the MD ordered Phenergan IV 12.5 q 6 PRN.
[2019-02-18] MEDS ORDERED: PROMETHAZINE 12.5MG/ NACL 0.9% 12.5 MG/50 ML BAG IV PRN (21:45)
[2019-02-18] MEDS: SODIUM CHLORIDE 0.9% 1000ML 1,000 ML IV SCH (21:56)
[2019-02-18] MEDS: PROMETHAZINE 12.5MG/ NACL 0.9% 50 ML IV PRN (21:56)
--- NOTE | 2019-02-18 22:01 | NUR ---
mother of the patient is on bed side, patient took her Tylenol and potassium PO but still refused potassium IV.
[2019-02-18 22:07] VITALS: BP 87/72
--- NOTE | 2019-02-18 22:57 | NUR ---
called and spoke with Lipscomb again, reported that patient refused Potassium IV and taking Tizanadine that she brought from home. The Md gave orders, see MAR.
[2019-02-18] MEDS ORDERED: NON-FORMULARY MEDICATION (Tizanidine Hcl (Zanaflex) 4 MG) PO PRN (23:00)
[2019-02-18] MEDS ORDERED: TIZANIDINE HCL 4 MG TAB PO PRN (23:30)
[2019-02-19] VITALS (10 sets, daily range): BP systolic 73–104; BP diastolic 50–72
[2019-02-19] MEDS: ONDANSETRON HCL INJ 2MG/ML 2ML 2 MG/ML VIAL IV PRN ×3 (05:00→18:18)
--- NOTE | 2019-02-19 05:01 | NUR ---
patient is agitated while she got blood drown and verbally abusive to nurse and refuse laborer, and she refused refuse laborer to put pressure to puncture site. zofran PRN given as she requested.
[2019-02-19 05:12] LABS: BASOPHILS % 0.4 % (0.0-1.0); EOSINOPHILS % 0.6 % (0.0-6.0); HEMATOCRIT 30.1 % (34.2-44.1); HEMOGLOBIN 10.1 g/dL (12.0-16.0); LYMPHOCYTES # (AUTO) 2.4 (1.0-3.2); LYMPHOCYTES % 44.4 % (18.0-39.1); MEAN CORPUSCULAR HEMOGLOBIN 31.2 pg (28-32); MEAN CORPUSCULAR HGB CONC 33.6 g/dL (31-35); MONOCYTES # (AUTO) 0.5 (0.2-0.8); MONOCYTES % 10.2 % (4.4-11.3); NEUTROPHILS # (AUTO) 2.4 (2.1-6.9); PLATELET COUNT 162 x10e3/uL (140-360); RED BLOOD COUNT 3.24 x10e6/uL (3.6-5.1); RED CELL DISTRIBUTION WIDTH 16.5 % (11.7-14.4)
[2019-02-19 05:23] LABS: MEAN CORPUSCULAR VOLUME 92.9 fL (81-99)
[2019-02-19 05:45] LABS: CREATINE KINASE MB 1.5 ng/mL (0-5.0)
--- NOTE | 2019-02-19 05:49 | NUR ---
patient went to the bathroom with minimum assistance for urinating, she tolerated well.
[2019-02-19] MEDS ORDERED: DRAMAMINE50 MG (06:12)
[2019-02-19] MEDS ORDERED: GABAPENTIN300 MG PO (06:12)
[2019-02-19] MEDS ORDERED: TRANSDERM-SCOP1 EACH TD (06:12)
[2019-02-19] MEDS ORDERED: MIDODRINE HCL2.5 MG PO (06:12)
[2019-02-19] MEDS ORDERED: ATIVAN1 MG (06:12)
[2019-02-19 06:22] LABS: ALANINE AMINOTRANSFERASE 18 IU/L (0-55); ALBUMIN 1.5 g/dL (3.5-5.0); ALBUMIN/GLOBULIN RATIO 0.6 (0.8-2.0); ALKALINE PHOSPHATASE 335 IU/L (40-150); ANION GAP 10.2 mmol/L (8-16); BLOOD UREA NITROGEN 7 mg/dL (7-26); BUN/CREATININE RATIO 12 (6-25); CALCIUM 7.6 mg/dL (8.4-10.2); CARBON DIOXIDE 29 mmol/L (22-29); CHLORIDE 105 mmol/L (98-107); CREATININE, SERUM 0.57 mg/dL (0.57-1.11); EST GLOMERULAR FILTRATION RATE > 60 ML/MIN (60-); GLUCOSE 110 mg/dL (74-118); POTASSIUM 3.2 mmol/L (3.5-5.1); SODIUM 141 mmol/L (136-145)
--- NOTE | 2019-02-19 06:30 | NUR ---
called and spoke to dr Kirby for orders, see MAR.
[2019-02-19] MEDS: CEFEPIME 2 GM/NS 0.9% 100 ML 100 ML IV SCH ×2 (06:35→17:12)
[2019-02-19] MEDS: SODIUM CHLORIDE 0.9% 1000ML 1,000 ML IV SCH ×3 (06:35→18:09)
[2019-02-19] MEDS: GABAPENTIN 400 MG CAP PO SCH ×3 (08:06→20:13)
[2019-02-19] MEDS: CALCIUM CARBONATE 500 MG CHEWABLE TABS PO SCH ×3 (08:06→22:00)
--- NOTE | 2019-02-19 08:40 | NUR ---
patient refuses to eat breakfast states "she is not hungary and does not eat all the time anyway", will continue to monitor
--- NOTE | 2019-02-19 09:56 | NUR ---
H&P cc: vomiting and leg cramps HPI: 33yoF, PCP Dr.M. Holliday, developed intractable N/V and leg cramps. Pt also notes that BP at home was 76/29. PMH: UTI, anxiety, depression, Lupus, Fibromyalgia, Raynaud syndrome, Bipolar d/o, Gitelman syndrome, gait dysfunction using cane; vasculitis PShx: Ex Lap, Lap lilly, port-a-cath, facial lipoma, kidney biopsy Allergies; see emr Fh/SH; single; no cigs MEds; see MAR ROS: no f/c/s/cp/sob/back pain/dizziness/skin rash v/s; Revd PE tired appearing anicteric ns1s2 mod bs soft nt nd no e/t a&ox; woo skin dry flat affect labs/meds; revd A/P: 33yoF Hypokalemia- replace/recheck Hypocalcemia- replace/recheck Dehydration- rehydrate. Gitelman's syndrome- replace lytes Lupus- f/u outpt. Fibromyalgia- home meds Mood d/o- home meds Prop; BRANDEE maharaj Dispo: f/u labs; Tenzin Kirby MD, PhD.
[2019-02-19] MEDS ORDERED: POTASSIUM CHLORIDE 20 MEQ TAB CR PO SCH (10:15)
--- NOTE | 2019-02-19 10:26 | NUR ---
EDUCATED ABOUT MCELROY, SIGNED, FILED IN CHART, WITH COPY LEFT WITH FAMILY AT BEDSIDE. SPOKE
[2019-02-19] MEDS ORDERED: MAGNESIUM SULFATE 2GM/50ML 50 ML IV ONE (10:30)
[2019-02-19] MEDS ORDERED: CALCIUM GLUCONATE 10% INJ 9.3 MEQ in SODIUM CHLORIDE 0.9% 100 ML 100 ML IV ONE (11:00)
[2019-02-19 14:18] LABS: CREATINE KINASE 112 IU/L (29-168)
--- NOTE | 2019-02-19 14:47 | Consultation ---
DATE OF CONSULTATION: Renal Consultation HISTORY OF PRESENT ILLNESS: Thank you Dr. Kirby for the consultation. Ms. 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 She, however, has not had confirmatory diagnosis because she has not been able to go to the [facility] Genetics Department for chromosomal analysis. In any case, the patient has been followed in my clinic. I have seen her previously at [facility]. She is a patient of Dr. Holliday. She was sent to the emergency room by Dr. Holliday yesterday because after seen in his office, she was found to be hypotensive with systolic BPs in the 60 to 70s mmHg and she appeared to be very dusky and very frail-appearing. She was given fluid boluses in the ER. The patient's blood pressure has improved somewhat, however, still appears weak. Potassium was slightly low yesterday at 3.2. The patient is supposed to be taking potassium supplementation in the outpatient setting, typically 40 mg twice a day to 3 times a day. She is also on spironolactone. However, whenever her blood pressure is low, I have instructed her not to take her spironolactone since that would worsen her hypotension. In any case, the patient currently is seen in her room. She is not in any overt respiratory distress with no fever, no chills, no nausea, no vomiting, no diarrhea, may or may not have bacteremia. She did have fever as well and lactic acid was also elevated likely from the hypoperfusion state. Renal consultation has been asked for the management of her hypokalemia and other electrolyte abnormalities. Of note, her ionized calcium was low at 1.0. Magnesium level is actually okay, slightly on the lower side of normal at 1.4. PAST MEDICAL HISTORY: Gitelman syndrome, hypotension, and history of edema. SOCIAL HISTORY: No tobacco. No alcohol use. FAMILY HISTORY: Noncontributory. REVIEW OF SYSTEMS: See HPI. Otherwise, all systems negative. MEDICATIONS: Reviewed per chart. ALLERGIES: TO SULFA DRUGS, NITROFURANTOIN, AND TRAMADOL. PHYSICAL EXAMINATION: VITAL SIGNS: Blood pressure, the last one drawn was 82/53, prior to that was 97/50, pulse 60, 18 respirations, afebrile. HEENT: No cervical lymphadenopathy. NECK: Supple without masses. No obvious JVD. Moist-appearing mucosa. SKIN: Moist with good skin turgor. CHEST WALL: Good expansion. No chest wall tenderness. LUNGS: Clear to auscultation bilaterally. CARDIOVASCULAR: S1 and S2. No obvious gallop, rub, or murmur. ABDOMEN: Soft. Positive bowel sounds. Nontender. No organomegaly. EXTREMITIES: No evidence of lower extremity edema. No clubbing. No cyanosis. NEUROLOGIC: Awake, alert, and oriented x3. Grossly nonfocal exam. LABORATORY WORKUP: Potassium is 3.2, sodium 141, chloride 105, bicarb 29, BUN 7, creatinine is 0.57, calcium 7.6, ionized calcium 1.0, and magnesium was 1.4 yesterday. IMPRESSION AND PLAN: 1. 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 The patient has had urine parameters and serum levels done of both potassium, also 24-hour urine studies done, which did show low calcium, which would fit in line with Gitelman syndrome. However, she has not been able to go to Genetics Department at [facility] for confirmatory testing. For now, we would continue potassium chloride 40 mEq twice a day. Recheck daily labs and make further recommendations. For now, we would not give her any potassium-sparing diuretics such as amiloride or spironolactone since her blood pressure is too low. We will continue to monitor closely with you and make further recommendations. We will replace the calcium also. We will also replace magnesium and make further recommendations. 2. Hypotension. Recommend to give boluses of fluids periodically and to keep off all blood pressure lowering medications. 3. Hypocalcemia. Replace with 2 g calcium gluconate. Recheck labs in the morning. 4. Mild hypomagnesemia. Replace with 2 g of mag sulfate. Recheck labs in the morning. Thank you once again for the consult. We will follow the patient closely with you and make further recommendations. Maxwell Mixon MD /MODL /[id number] cc: Tenzin Kirby MD
[2019-02-19] MEDS: KLOR CON 10 MEQ PO SCH (16:24)
[2019-02-19 19:32] LABS: ANION GAP 15.5 mmol/L (8-16); BLOOD UREA NITROGEN 8 mg/dL (7-26); BUN/CREATININE RATIO 13 (6-25); CALCIUM 8.6 mg/dL (8.4-10.2); CARBON DIOXIDE 25 mmol/L (22-29); CHLORIDE 107 mmol/L (98-107); CREATININE, SERUM 0.62 mg/dL (0.57-1.11); EST GLOMERULAR FILTRATION RATE > 60 ML/MIN (60-); GLUCOSE 108 mg/dL (74-118); POTASSIUM 3.5 mmol/L (3.5-5.1); SODIUM 144 mmol/L (136-145)
[2019-02-19] MEDS: PROMETHAZINE 12.5MG/ NACL 0.9% 50 ML IV PRN (20:13)
[2019-02-19] MEDS: FAMOTIDINE 20 MG TAB PO SCH (20:33)
[2019-02-20 04:27] VITALS: BP 96/62
[2019-02-20] MEDS: PROMETHAZINE 12.5MG/ NACL 0.9% 50 ML IV PRN (05:09)
[2019-02-20 05:28] LABS: BASOPHILS % 0.7 % (0.0-1.0); EOSINOPHILS # (AUTO) 0.1 (0.0-0.4); EOSINOPHILS % 1.4 % (0.0-6.0); HEMATOCRIT 30.7 % (34.2-44.1); HEMOGLOBIN 9.8 g/dL (12.0-16.0); LYMPHOCYTES # (AUTO) 2.8 (1.0-3.2); LYMPHOCYTES % 48.2 % (18.0-39.1); MEAN CORPUSCULAR HGB CONC 31.9 g/dL (31-35); MEAN CORPUSCULAR VOLUME 97.2 fL (81-99); MONOCYTES # (AUTO) 0.5 (0.2-0.8); MONOCYTES % 8.1 % (4.4-11.3); NEUTROPHILS # (AUTO) 2.4 (2.1-6.9); NEUTROPHILS % 41.4 % (38.7-80.0); PLATELET COUNT 179 x10e3/uL (140-360); RED BLOOD COUNT 3.16 x10e6/uL (3.6-5.1); RED CELL DISTRIBUTION WIDTH 16.8 % (11.7-14.4)
[2019-02-20 05:48] LABS: ANION GAP 12.2 mmol/L (8-16); BLOOD UREA NITROGEN 8 mg/dL (7-26); BUN/CREATININE RATIO 14 (6-25); CARBON DIOXIDE 25 mmol/L (22-29); CHLORIDE 110 mmol/L (98-107); CREATININE, SERUM 0.59 mg/dL (0.57-1.11); EST GLOMERULAR FILTRATION RATE > 60 ML/MIN (60-); GLUCOSE 113 mg/dL (74-118); MAGNESIUM 1.9 MG/DL (1.3-2.1); PHOSPHORUS 4.7 MG/DL (2.3-4.7); POTASSIUM 3.2 mmol/L (3.5-5.1); SODIUM 144 mmol/L (136-145)
[2019-02-20] MEDS ORDERED: POTASSIUM CHLORIDE 20 MEQ TAB CR PO STA (06:56)
[2019-02-20] MEDS ORDERED: KEFLEX500 MG PO (06:59)
[2019-02-20] MEDS ORDERED: POTASSIUM CHLO10 MEQ PO (06:59)
[2019-02-20] MEDS ORDERED: Calcium Carbonate 500MG Chew PO (06:59)
--- NOTE | 2019-02-20 07:02 | NUR ---
D/C summary Principal Dx: Hypokalemia- replace/recheck Hypocalcemia- replace/recheck Dehydration- rehydrate. UTI Secondary Dx: Gitelman's syndrome- replace lytes Lupus- f/u outpt. Fibromyalgia- home meds Mood d/o- home meds d/c home stable f/u pcp 1 week d/c>35mins Tenzin Kirby MD, PhD.
[2019-02-20] MEDS: SODIUM CHLORIDE 0.9% 1000ML 1,000 ML IV SCH (07:05)
[2019-02-20] MEDS: CEFEPIME 2 GM/NS 0.9% 100 ML 100 ML IV SCH (07:10)
[2019-02-20 07:50] VITALS: BP 88/61
[2019-02-20] MEDS: KLOR CON 10 MEQ PO SCH (08:51)
[2019-02-20] MEDS: CALCIUM CARBONATE 500 MG CHEWABLE TABS PO SCH (08:51)
[2019-02-20] MEDS: FAMOTIDINE 20 MG TAB PO SCH (08:51)
[2019-02-20] MEDS: GABAPENTIN 400 MG CAP PO SCH (08:51)
--- NOTE | 2019-02-20 09:21 | NUR ---
Patient refused potassium ordered by , states "she wants to take her own medication of klor con instead" patient given 6 tabs to equal 60 meq po as ordered by
--- NOTE | 2019-02-20 09:54 | NUR ---
Dr. Kirby called and provided patients and pharmacy number for discharge medications
== END 2019-02-20 10:00 | disposition home or self-care (01) ==
LOC: ER 15:35 → INTOOBSV 19:42 → OBSVTOIN 19:42 → ERHOLD 19:42 → IMCU 21:10
PROVIDERS: ADMIT Internal Medicine; ATTEND Internal Medicine
DX: N15.8 Other specified renal tubulo-interstitial diseases (principal); N39.0 Urinary tract infection, site not specified; F41.9 Anxiety disorder, unspecified; R26.9 Unspecified abnormalities of gait and mobility; E87.6 Hypokalemia; E83.51 Hypocalcemia; E86.0 Dehydration; F31.9 Bipolar disorder, unspecified; M79.7 Fibromyalgia; M32.9 Systemic lupus erythematosus, unspecified
CPT/HCPCS: 36415 ×3; 71045; 80048 ×2; 80053 ×2; 80307; 81001; 82550 ×2; 82553 ×2; 83605; 83735 ×2; 84100 ×2; 84484 ×2; 85025 ×3; 85610; 85730; 87040; 87086; 87186; 93005; 96374; 99284; G0378 ×3; J0610; J2405 ×2; J2550 ×3; J3370; J3475; J3480; J7030 ×3

== ENCOUNTER 2020-05-05 11:21 | Inpatient (IN) | payer MEDICARE, OTHER ==
[~2020-05-05] VITALS: Ht 152.4 cm; Wt 68.0 kg
[~2020-05-05 11:21] MED LIST changes: +ATIVAN1 MG; +Calcium Carbonate 500MG Chew PO; +DRAMAMINE50 MG; +KEFLEX500 MG PO; +MIDODRINE HCL2.5 MG PO; +POTASSIUM CHLO10 MEQ PO
[2020-05-05] MEDS ORDERED: ENOXAPARIN INJ 80 MG/0.8 ML SYR SC ONE (14:00)
[2020-05-05] MEDS ORDERED: POTASSIUM CHLORIDE 20 MEQ TAB CR PO ONE ×2 (14:00→14:08)
[2020-05-05] MEDS ORDERED: ENOXAPARIN SODIUM INJ 100 MG/ML SYR SC ONE (14:08)
[2020-05-05] MEDS ORDERED: PEPCID AC10 MG PO (14:13)
[2020-05-05] MEDS ORDERED: MELATONIN3 MG PO (14:13)
[2020-05-05] MEDS ORDERED: MIDODRINE HCL5 MG PO (14:13)
[2020-05-05] MEDS ORDERED: SIMETHICONE80 MG PO (14:13)
[2020-05-05] MEDS ORDERED: MULTI-VITAMIN1 EACH (14:13)
[2020-05-05] MEDS ORDERED: TIZANIDINE HCL4 MG PO (14:13)
[2020-05-05] MEDS ORDERED: TYLENOL # 31 EA (14:13)
[2020-05-05] MEDS ORDERED: NAPROXEN250 MG PO (14:13)
[2020-05-05] MEDS ORDERED: DULOXETINE PO (14:14)
[2020-05-05] MEDS ORDERED: CYMBALTA30 MG PO (15:49)
[2020-05-05 16:52] VITALS: BP 119/76
[2020-05-05 20:00] VITALS: BP 123/86
[2020-05-05] MEDS: ACETAMINOPHEN/CODEINE 300MG - 30MG TAB PO PRN (20:13)
[2020-05-05] MEDS ORDERED: MIDODRINE HCL 5 MG TABLET PO PRN (20:30)
[2020-05-05] MEDS ORDERED: SIMETHICONE 80 MG CHEW PO PRN (20:30)
[2020-05-05] MEDS: ONDANSETRON HCL INJ 2MG/ML 2ML 2 MG/ML VIAL IV PRN (22:23)
[2020-05-05] MEDS: MELATONIN 5 MG TABLET PO SCH (23:34)
[2020-05-05] MEDS: GABAPENTIN 300 MG CAP PO SCH (23:34)
[2020-05-05] MEDS: TIZANIDINE HCL 4 MG TAB PO SCH (23:35)
[2020-05-06] VITALS (9 sets, daily range): BP systolic 78–136; BP diastolic 44–90
[2020-05-06] MEDS: ENOXAPARIN INJ 80 MG/0.8 ML SYR SC SCH ×2 (02:45→15:06)
[2020-05-06] MEDS: DULOXETINE HCL 30 MG DELAYED RELEASE PO SCH (09:03)
[2020-05-06] MEDS: GABAPENTIN 300 MG CAP PO SCH ×3 (09:04→21:17)
[2020-05-06] MEDS: FAMOTIDINE 20 MG TAB PO SCH ×2 (09:04→16:32)
[2020-05-06] MEDS: ACETAMINOPHEN/CODEINE 300MG - 30MG TAB PO PRN ×2 (09:04→18:07)
[2020-05-06 09:10] LABS: BASOPHILS % 0.5 % (0.0-1.0); EOSINOPHILS # (AUTO) 0.1 (0.0-0.4); EOSINOPHILS % 1.6 % (0.0-6.0); HEMATOCRIT 30.4 % (34.2-44.1); HEMOGLOBIN 10.1 g/dL (12.0-16.0); LYMPHOCYTES # (AUTO) 3.8 (1.0-3.2); MEAN CORPUSCULAR HEMOGLOBIN 30.6 pg (28-32); MEAN CORPUSCULAR HGB CONC 33.2 g/dL (31-35); MEAN CORPUSCULAR VOLUME 92.1 fL (81-99); MONOCYTES # (AUTO) 0.3 (0.2-0.8); MONOCYTES % 5.8 % (4.4-11.3); NEUTROPHILS # (AUTO) 1.4 (2.1-6.9); NEUTROPHILS % 24.9 % (38.7-80.0); PLATELET COUNT 188 x10e3/uL (140-360); RED CELL DISTRIBUTION WIDTH 15.3 % (11.7-14.4)
[2020-05-06 09:28] LABS: ANION GAP 10.4 mmol/L (8-16); BLOOD UREA NITROGEN 9 mg/dL (7-26); BUN/CREATININE RATIO 16 (6-25); CALCIUM 7.3 mg/dL (8.4-10.2); CARBON DIOXIDE 27 mmol/L (22-29); CHLORIDE 105 mmol/L (98-107); CHOL/HDL RATIO 2.1 (3.0-3.6); CHOLESTEROL 121 MD/DL (0-199); CREATININE, SERUM 0.58 mg/dL (0.57-1.11); EST GLOMERULAR FILTRATION RATE > 60 ML/MIN (60-); GLUCOSE 102 mg/dL (74-118); HDL CHOLESTEROL 57 MG/DL (40-60); LDL CHOLESTEROL 49 MG/DL (60-130); POTASSIUM 3.4 mmol/L (3.5-5.1); SODIUM 139 mmol/L (136-145); TRIGLYCERIDES 74 MG/DL (0-149)
[2020-05-06 15:50] LABS: MAGNESIUM 1.7 MG/DL (1.3-2.1); PHOSPHORUS 3.8 MG/DL (2.3-4.7); POTASSIUM 3.7 mmol/L (3.5-5.1)
[2020-05-06] MEDS: CYCLOBENZAPRINE HCL 10 MG TAB PO SCH ×2 (20:00→22:00)
[2020-05-06] MEDS ORDERED: DIPHENHYDRAMINE HCL 25 MG CAP PO PRN (21:00)
[2020-05-06] MEDS ORDERED: DIPHENHYDRAMINE HCL INJ 50 MG/ML VIAL ONE (21:06)
[2020-05-06] MEDS ORDERED: MORPHINE SULFATE INJ 4 MG/ML INJ 1ML ONE (21:06)
[2020-05-06] MEDS ORDERED: DIPHENHYDRAMINE HCL 25 MG CAP ONE (21:07)
[2020-05-06] MEDS: ONDANSETRON HCL INJ 2MG/ML 2ML 2 MG/ML VIAL IV PRN (21:10)
[2020-05-06] MEDS: MELATONIN 5 MG TABLET PO SCH (21:17)
[2020-05-06] MEDS: MORPHINE SULFATE 2 MG/ML SYR 1ML IV PRN (21:17)
[2020-05-06] MEDS: TIZANIDINE HCL 4 MG TAB PO SCH (21:19)
[2020-05-06] MEDS ORDERED: PROMETHAZINE 12.5MG/ NACL 0.9% 12.5 MG/50 ML BAG IV PRN (23:00)
[2020-05-07] VITALS: BP 97/67
[2020-05-07] MEDS: ENOXAPARIN INJ 80 MG/0.8 ML SYR SC SCH (02:06)
[2020-05-07] MEDS: ONDANSETRON HCL INJ 2MG/ML 2ML 2 MG/ML VIAL IV PRN (03:56)
[2020-05-07] MEDS: MORPHINE SULFATE 2 MG/ML SYR 1ML IV PRN (03:57)
[2020-05-07 04:00] VITALS: BP 90/55
[2020-05-07] MEDS: CYCLOBENZAPRINE HCL 10 MG TAB PO SCH (05:55)
[2020-05-07 06:22] VITALS: BP 90/61
[2020-05-07 08:12] VITALS: BP 90/61
[2020-05-07 08:23] VITALS: BP 108/80
[2020-05-07] MEDS ORDERED: ELIQUIS5 MG PO (08:34)
[2020-05-07] MEDS: GABAPENTIN 300 MG CAP PO SCH (08:52)
[2020-05-07] MEDS: FAMOTIDINE 20 MG TAB PO SCH (08:52)
[2020-05-07] MEDS: DULOXETINE HCL 30 MG DELAYED RELEASE PO SCH (08:52)
[2020-05-07] MEDS: ACETAMINOPHEN/CODEINE 300MG - 30MG TAB PO PRN (08:53)
== END 2020-05-07 09:15 | disposition home or self-care (01) | DRG 301 ==
LOC: FSED 11:27 → ERHOLD 13:40 → MED/SURG 15:23
PROVIDERS: ADMIT Internal Medicine; ATTEND Internal Medicine
DX: I82.442 Acute embolism and thrombosis of left tibial vein (principal); E87.6 Hypokalemia; I10 Essential (primary) hypertension; M32.9 Systemic lupus erythematosus, unspecified; F17.210 Nicotine dependence, cigarettes, uncomplicated; E86.0 Dehydration; F39 Unspecified mood [affective] disorder; M79.7 Fibromyalgia; Z90.49 Acquired absence of other specified parts of digestive tract; Z88.2 Allergy status to sulfonamides; Z88.8 Allergy status to other drugs, medicaments and biological substances; Z11.59 Encounter for screening for other viral diseases; N25.89 Other disorders resulting from impaired renal tubular function
CPT/HCPCS: 36415; 80048; 80061; 82948; 83735; 84100; 84132; 85025; 93971; 99284; J1200; J1642; J1650; J2270; J2405; J2550; U0002

== ENCOUNTER → 2020-06-30 | Outpatient (CLI) | payer MEDICARE, OTHER ==
[~2020-06-30] MED LIST changes: +CYMBALTA30 MG PO; +DULOXETINE PO; +ELIQUIS5 MG PO; +MELATONIN3 MG PO; +MIDODRINE HCL5 MG PO; +MULTI-VITAMIN1 EACH; +NAPROXEN250 MG PO; +PEPCID AC10 MG PO; +SIMETHICONE80 MG PO; +TIZANIDINE HCL4 MG PO; +TYLENOL # 31 EA
== END ==
LOC: RAD 08:48
PROVIDERS: ATTEND Internal Medicine
DX: I95.9 Hypotension, unspecified (principal)
CPT/HCPCS: 93306